=== PATIENT | male | born 1965 | race African-American/Black ===

== ENCOUNTER → 2019-09-16 | Outpatient (CLI) | payer OTHER, SELFPAY | LOC: M LABSMTC 12:48 | PROVIDERS: ATTEND Family Medicine | DX: Z03.818 Encounter for observation for suspected exposure to other biological agents ruled out (principal); Z11.59 Encounter for screening for other viral diseases | CPT/HCPCS: C9803; U0003 ==

== ENCOUNTER → 2020-12-10 | Outpatient (CLI) | payer OTHER ==
--- NOTE | 2020-12-10 14:10 | REP ---
INDICATION: R06.02 SHORTNESS OF BREATH. COMPARISON: None. TECHNIQUE: PA and lateral views FINDINGS: The lungs are clear. The heart is not enlarged. There is no failure. The mediastinum and pleural surfaces are unremarkable. The bony structures are intact. IMPRESSION: Negative chest x-ray. <Electronically signed by Kevin Ty > 12/10/20 [id number]
[2020-12-10 15:26] LABS: BASO # 0.1 10^3/uL (0.0-0.2); BASO % 0.9 % (0.0-1.0); EOS % 0.4 % (0.0-3.0); HEMATOCRIT 40.1 % (42.0-52.0); HEMOGLOBIN 13.4 g/dl (13.5-17.5); LYMPH # 1.9 10^3/uL (1.5-5.0); MEAN CORPUSCULAR HEMOGLOBIN 31.4 pg (27.0-33.0); MEAN CORPUSCULAR HGB CONC 33.4 g/dl (32.0-36.5); MEAN CORPUSCULAR VOLUME 93.9 fl (80.0-96.0); MONO # 0.4 10^3/uL (0.0-0.8); MONO % 7.7 % (2.0-8.0); NEUTROPHILS % 55.8 % (36.0-66.0); PLATELET COUNT, AUTOMATED 226 10^3/uL (150-450); RED BLOOD COUNT 4.27 10^6/uL (4.30-6.10); WHITE BLOOD COUNT 5.3 10^3/uL (4.0-10.0)
[2020-12-10 16:07] LABS: ALBUMIN 3.1 GM/DL (3.2-5.2); ALT/SGPT 106 U/L (12-78); BILIRUBIN,TOTAL 0.4 MG/DL (0.2-1.0); BLOOD UREA NITROGEN 14 MG/DL (7-18); CALCIUM LEVEL 8.3 MG/DL (8.5-10.1); CARBON DIOXIDE LEVEL 28 MEQ/L (21-32); CHLORIDE LEVEL 98 MEQ/L (98-107); CREATININE FOR GFR 0.82 MG/DL (0.70-1.30); GLOMERULAR FILTRATION RATE > 60.0 (>56); GLUCOSE, FASTING 94 MG/DL (70-100); NT-PRO BNP 29 PG/ML (<125); POTASSIUM SERUM 4.7 MEQ/L (3.5-5.1); SODIUM LEVEL 131 MEQ/L (136-145); TOTAL PROTEIN 7.4 GM/DL (6.4-8.2)
== END ==
LOC: M WUC 13:24
PROVIDERS: ATTEND Physician Assistant
DX: R06.02 Shortness of breath (principal)

== ENCOUNTER → 2021-04-01 | Outpatient (CLI) | payer OTHER ==
[~2021-04-01] MED LIST: IBUP80TA
== END ==
LOC: M SOG 09:44
PROVIDERS: ATTEND Orthopaedic Surgery
DX: M47.817 Spondylosis without myelopathy or radiculopathy, lumbosacral region (principal)

== ENCOUNTER → 2021-04-03 | Outpatient (CLI) | payer OTHER | LOC: M PLAIMG 09:46 | PROVIDERS: ATTEND Orthopaedic Surgery | DX: M47.816 Spondylosis without myelopathy or radiculopathy, lumbar region (principal); M48.07 Spinal stenosis, lumbosacral region; M48.061 Spinal stenosis, lumbar region without neurogenic claudication; M51.36 Other intervertebral disc degeneration, lumbar region; E88.2 Lipomatosis, not elsewhere classified ==

== ENCOUNTER → 2021-04-24 | Outpatient (CLI) | payer OTHER ==
[2021-04-24 10:52] LABS: ALBUMIN 3.4 GM/DL (3.2-5.2); ALT/SGPT 120 U/L (12-78); BILIRUBIN,TOTAL 0.3 MG/DL (0.2-1.0); BLOOD UREA NITROGEN 9 MG/DL (7-18); CALCIUM LEVEL 8.7 MG/DL (8.5-10.1); CARBON DIOXIDE LEVEL 27 MEQ/L (21-32); CHLORIDE LEVEL 96 MEQ/L (98-107); CREATININE FOR GFR 0.85 MG/DL (0.70-1.30); GLOMERULAR FILTRATION RATE > 60.0 (>56); GLUCOSE, FASTING 104 MG/DL (70-100); POTASSIUM SERUM 4.9 MEQ/L (3.5-5.1); SODIUM LEVEL 129 MEQ/L (136-145); TOTAL PROTEIN 7.8 GM/DL (6.4-8.2)
[2021-04-24 11:46] LABS: TOTAL 25(OH) VITAMIN D 10.6 NG/ML (30.0-100.0)
[2021-04-28 14:05] LABS: ALBUMIN 3.99 GM/DL (3.29-5.55); ALBUMIN % 51.1 % (55.8-66.1); ALPHA-1-GLOBULIN % 4.2 % (2.9-4.9); ALPHA-1-GLOBULINS 0.33 GM/DL (0.17-0.41); ALPHA-2-GLOBULINS 0.88 GM/DL (0.42-0.99); ALPHA-2-GLOBULINS % 11.3 % (7.1-11.8); BETA-1-GLOBULINS 0.51 GM/DL (0.28-0.60); BETA-1-GLOBULINS % 6.6 % (4.7-7.2); BETA-2-GLOBULINS 0.44 GM/DL (0.19-0.55); BETA-2-GLOBULINS % 5.7 % (3.2-6.5); GAMMA GLOBULIN % 21.1 % (11.1-18.8); GAMMA GLOBULINS 1.65 GM/DL (0.65-1.58)
== END ==
LOC: M LAB 09:33
PROVIDERS: ATTEND Orthopaedic Surgery
DX: M47.816 Spondylosis without myelopathy or radiculopathy, lumbar region (principal); M48.062 Spinal stenosis, lumbar region with neurogenic claudication

== ENCOUNTER → 2021-04-24 | Outpatient (CLI) | payer OTHER ==
[2021-04-24 10:29] LABS: BASO % 0.8 % (0.0-1.0); EOS % 0.4 % (0.0-3.0); HEMATOCRIT 41.8 % (42.0-52.0); HEMOGLOBIN 13.8 g/dl (13.5-17.5); LYMPH # 1.8 10^3/uL (1.5-5.0); LYMPH % 36.9 % (24.0-44.0); MEAN CORPUSCULAR HEMOGLOBIN 30.1 pg (27.0-33.0); MEAN CORPUSCULAR VOLUME 91.1 fl (80.0-96.0); MONO # 0.5 10^3/uL (0.0-0.8); MONO % 9.9 % (2.0-8.0); NEUTROPHILS # 2.6 10^3/uL (1.5-8.5); NEUTROPHILS % 51.8 % (36.0-66.0); PLATELET COUNT, AUTOMATED 215 10^3/uL (150-450); RED BLOOD COUNT 4.59 10^6/uL (4.30-6.10); WHITE BLOOD COUNT 4.9 10^3/uL (4.0-10.0)
[2021-04-24 10:57] LABS: HEMOGLOBIN A1c 5.7 %
[2021-04-24 11:02] LABS: ALBUMIN 3.3 GM/DL (3.2-5.2); ALT/SGPT 119 U/L (12-78); BILIRUBIN,TOTAL 0.3 MG/DL (0.2-1.0); BLOOD UREA NITROGEN 8 MG/DL (7-18); CALCIUM LEVEL 8.5 MG/DL (8.5-10.1); CARBON DIOXIDE LEVEL 28 MEQ/L (21-32); CHLORIDE LEVEL 96 MEQ/L (98-107); CHOLESTEROL LEVEL 136 MG/DL (<200); CHOLESTEROL RISK RATIO 3.578 (<5); CREATININE FOR GFR 0.81 MG/DL (0.70-1.30); FREE T4 1.01 NG/DL (0.76-1.46); GLOMERULAR FILTRATION RATE > 60.0 (>56); GLUCOSE, FASTING 103 MG/DL (70-100); HDL CHOLESTEROL 38 MG/DL (>40); LDL CHOLESTEROL 79 MG/DL (<100); NON-HDL-C 98 MG/DL; POTASSIUM SERUM 4.7 MEQ/L (3.5-5.1); SODIUM LEVEL 130 MEQ/L (136-145); TOTAL PROTEIN 7.7 GM/DL (6.4-8.2); TRIGLYCERIDES LEVEL 93 MG/DL (<150); URIC ACID 7.1 MG/DL (3.5-7.2)
[2021-04-24 12:22] LABS: HIV 1&2 SCREEN CENTAUR NEGATIVE (NEGATIVE)
== END ==
LOC: M LAB 09:35
PROVIDERS: ATTEND Nurse Practitioner Family
DX: Z76.89 Persons encountering health services in other specified circumstances (principal)

== ENCOUNTER → 2021-04-28 | Outpatient (REF) | payer OTHER | LOC: M LAB REF 11:46 | PROVIDERS: ATTEND Nurse Practitioner Family | DX: Z12.11 Encounter for screening for malignant neoplasm of colon (principal) ==

== ENCOUNTER → 2021-05-05 | Outpatient (CLI) | payer OTHER ==
[~2021-05-05] MED LIST changes: -IBUP80TA; +PROHANCE 279.3MG/ML 15ML VIAL ONE; +PROHANCE 279.3MG/ML 5ML VIAL ONE
--- NOTE | 2021-05-05 15:06 | REPVR ---
PROCEDURE INFORMATION: Exam: MR Lumbar Spine With Contrast Exam date and time: 05/05/2021 2:29 PM Age: 55 years old Clinical indication: Low back pain; Additional info: Spinal stenosis lumbar w/ neurogenic cladication TECHNIQUE: Imaging protocol: Multiplanar magnetic resonance images of the lumbar spine with intravenous contrast. Contrast material: PROHANCE; Contrast volume: 25 ml; Contrast route: INTRAVENOUS (IV); COMPARISON: MRI-Spine, L.S. without con 04/03/2021 9:59 AM FINDINGS: Vertebrae: There is no acute fracture or listhesis. There is no abnormal marrow enhancement. 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 Spinal canal/neural foramina: Please refer to the preceding noncontrast enhanced examination for complete level by level evaluation. Soft tissues: Unremarkable. IMPRESSION: No abnormal marrow enhancement. Pattern on preceding examination likely reflects changes of age-related marrow conversion. Electronically signed by: Ines Ellis On 05/05/2021 15:05:24 PM
== END ==
LOC: M PLAIMG 13:35
PROVIDERS: ATTEND Orthopaedic Surgery
DX: M48.062 Spinal stenosis, lumbar region with neurogenic claudication (principal)

== ENCOUNTER → 2021-05-06 | Outpatient (CLI) | payer OTHER ==
--- NOTE | 2021-05-06 10:24 | REP ---
INDICATION: LOWER LT LEG ADEMA. COMPARISON: None. TECHNIQUE: Multiple ultrasonographic images of the deep venous structures of the left lower extremity were obtained from the inguinal ligament to the ankle. Venous compression techniques, color doppler imaging, and augmentation techniques were also obtained where appropriate. As per the ACR guidelines the anterior tibial vein can not be effectively evaluated. Only compression techniques in the calf on the peroneal and posterior tibial veins was attempted/performed. FINDINGS: There is no abnormal echogenic material seen within any of the visualized deep venous structures that would suggest acute thrombosis. Coaptation is unremarkable throughout. Doppler interrogation shows an expected response to respiratory variability and augmentation in the thigh. Compression techniques in the calf were unobtainable. The color flow images show what appears to be a normal vascular pattern throughout the thigh. IMPRESSION: There is no ultrasonographic evidence of deep venous thrombosis involving any of the visualized deep venous structures of the left lower extremity as described above. Due to technical parameters calf vein DVT can not be ruled out. <Electronically signed by Frank Lovelace > 05/06/21 [id number]
== END ==
LOC: M RAD 09:40
PROVIDERS: ATTEND Nurse Practitioner Family
DX: R60.0 Localized edema (principal)

== ENCOUNTER 2021-05-28 09:54 | Emergency (ER) | payer OTHER ==
[~2021-05-28] VITALS: Ht 180.3 cm; Wt 130.0 kg
[2021-05-28] MEDS ORDERED: IBUP80TA (10:05)
[2021-05-28 12:29] LABS: BASO % 0.8 % (0.0-1.0); EOS % 0.8 % (0.0-3.0); HEMATOCRIT 39.1 % (42.0-52.0); HEMOGLOBIN 13.1 g/dl (13.5-17.5); LYMPH # 1.8 10^3/uL (1.5-5.0); LYMPH % 33.2 % (24.0-44.0); MEAN CORPUSCULAR HEMOGLOBIN 30.4 pg (27.0-33.0); MEAN CORPUSCULAR HGB CONC 33.5 g/dl (32.0-36.5); MEAN CORPUSCULAR VOLUME 90.7 fl (80.0-96.0); MONO # 0.7 10^3/uL (0.0-0.8); MONO % 12.3 % (2.0-8.0); NEUTROPHILS # 2.8 10^3/uL (1.5-8.5); NEUTROPHILS % 52.7 % (36.0-66.0); PLATELET COUNT, AUTOMATED 232 10^3/uL (150-450); RED BLOOD COUNT 4.31 10^6/uL (4.30-6.10); WHITE BLOOD COUNT 5.3 10^3/uL (4.0-10.0)
[2021-05-28 12:48] LABS: ERYTHROCYTE SEDIMENTATION RATE 32 mm/hr (0-20)
[2021-05-28 13:27] LABS: CK-MB VALUE MASS 1.6 NG/ML (<3.6); MB/CK RELATIVE INDEX 1.76 (< OR =4)
[2021-05-28 13:35] LABS: ALBUMIN 3.1 GM/DL (3.2-5.2); ALT/SGPT 137 U/L (12-78); BILIRUBIN,TOTAL 0.1 MG/DL (0.2-1.0); BLOOD UREA NITROGEN 7 MG/DL (7-18); C REACTIVE PROTEIN QUANTITATIV 1.11 MG/DL (0.00-0.30); CALCIUM LEVEL 8.4 MG/DL (8.5-10.1); CARBON DIOXIDE LEVEL 27 MEQ/L (21-32); CHLORIDE LEVEL 95 MEQ/L (98-107); CREATININE FOR GFR 0.79 MG/DL (0.70-1.30); GLOMERULAR FILTRATION RATE > 60.0 (>56); GLUCOSE, FASTING 101 MG/DL (70-100); POTASSIUM SERUM 4.5 MEQ/L (3.5-5.1); SODIUM LEVEL 129 MEQ/L (136-145); TOTAL PROTEIN 7.2 GM/DL (6.4-8.2); URIC ACID 5.5 MG/DL (3.5-7.2)
[2021-05-28] MEDS ORDERED: NS 1,000 ML IV ONE (14:05)
[2021-05-28 14:20] LABS: NT-PRO BNP 36 PG/ML (<125)
[2021-05-28 15:02] LABS: CK-MB VALUE MASS 1.6 NG/ML (<3.6); MB/CK RELATIVE INDEX 1.68 (< OR =4)
[2021-05-28 15:53] VITALS: BP 180/110
== END 2021-05-28 15:55 | disposition home or self-care (01) ==
LOC: M ED 09:54
DX: I10 Essential (primary) hypertension (principal); R22.42 Localized swelling, mass and lump, left lower limb; E87.1 Hypo-osmolality and hyponatremia; R74.01 Elevation of levels of liver transaminase levels; E87.8 Other disorders of electrolyte and fluid balance, not elsewhere classified

== ENCOUNTER → 2021-09-02 | Outpatient (CLI) | payer OTHER ==
[~2021-09-02] MED LIST changes: +IBUP80TA; -PROHANCE 279.3MG/ML 15ML VIAL ONE; -PROHANCE 279.3MG/ML 5ML VIAL ONE
== END ==
LOC: M SLEEP HO 11:32
PROVIDERS: ATTEND Physician Assistant
DX: R40.0 Somnolence (principal)

== ENCOUNTER → 2022-03-11 | Outpatient (CLI) | payer OTHER | LOC: M PAIN 13:00 | PROVIDERS: ATTEND Anesthesiology | DX: M79.10 Myalgia, unspecified site (principal); G89.29 Other chronic pain; G47.30 Sleep apnea, unspecified; Z87.891 Personal history of nicotine dependence; Z79.899 Other long term (current) drug therapy ==

== ENCOUNTER → 2022-03-18 | Outpatient (REF) | LOC: M PLAIMG 11:15 | PROVIDERS: ATTEND Internal Medicine | DX: Z11.52 Encounter for screening for COVID-19 (principal) ==

== ENCOUNTER → 2022-03-19 | Outpatient (REF) | payer OTHER ==
[2022-03-19 20:21] LABS: ALBUMIN 3.5 G/DL (3.2-5.2); ALT/SGPT 155 U/L (7.0-40); BILIRUBIN,TOTAL 0.5 MG/DL (0.3-1.2); BLOOD UREA NITROGEN 17 MG/DL (9-23); CALCIUM LEVEL 9.6 MG/DL (8.5-10.1); CARBON DIOXIDE LEVEL 26 MMOL/L (20-31); CHLORIDE LEVEL 88 MMOL/L (98-107); CREATININE FOR GFR 0.69 MG/DL (0.70-1.30); GLOMERULAR FILTRATION RATE > 60.0 (>56); GLUCOSE, FASTING 93 MG/DL (60-100); POTASSIUM SERUM 4.8 MMOL/L (3.5-5.1); SODIUM LEVEL 123 MMOL/L (136-145); TOTAL PROTEIN 7.5 G/DL (5.7-8.2)
== END ==
LOC: M LAB REF 16:31
PROVIDERS: ATTEND Nurse Practitioner Family
DX: I10 Essential (primary) hypertension (principal)

== ENCOUNTER → 2022-05-07 | Outpatient (CLI) | payer OTHER | LOC: M LABSMTC 09:26 | PROVIDERS: ATTEND Anesthesiology | DX: Z01.812 Encounter for preprocedural laboratory examination (principal); Z20.822 Contact with and (suspected) exposure to COVID-19 ==

== ENCOUNTER → 2022-05-12 | Outpatient (CLI) | payer OTHER ==
[~2022-05-12] MED LIST changes: +BUPIVACAINE HCL 0.25% 10ML VIAL As Ordered ONE; +BUPIVACAINE HCL 0.25% 30ML VIAL As Ordered ONE; +NORCO, ANEXSIA 5/325MG TABLET (HYDROcodone/ACETAMINOPHEN) As Ordered ONE; +TRIAMCINOLONE ACETONIDE SUSP 40MG/ML 1ML VIAL As Ordered ONE; +diazePAM 5MG TABLET As Ordered ONE
== END ==
LOC: M PAIN 10:30
PROVIDERS: ATTEND Anesthesiology
DX: M79.10 Myalgia, unspecified site (principal); G89.29 Other chronic pain; G47.30 Sleep apnea, unspecified; Z87.891 Personal history of nicotine dependence; Z79.899 Other long term (current) drug therapy

== ENCOUNTER → 2022-05-28 | Outpatient (CLI) | payer OTHER ==
[~2022-05-28] MED LIST changes: -BUPIVACAINE HCL 0.25% 10ML VIAL As Ordered ONE; -BUPIVACAINE HCL 0.25% 30ML VIAL As Ordered ONE; -NORCO, ANEXSIA 5/325MG TABLET (HYDROcodone/ACETAMINOPHEN) As Ordered ONE; -TRIAMCINOLONE ACETONIDE SUSP 40MG/ML 1ML VIAL As Ordered ONE; -diazePAM 5MG TABLET As Ordered ONE
[2022-05-28 11:36] LABS: BASO % 0.4 % (0.0-1.0); EOS # 0.1 10^3/uL (0.0-0.5); EOS % 0.7 % (0.0-3.0); HEMATOCRIT 36.8 % (42.0-52.0); HEMOGLOBIN 12.8 g/dl (13.5-17.5); LYMPH # 1.7 10^3/uL (1.5-5.0); LYMPH % 22.9 % (24.0-44.0); MEAN CORPUSCULAR HEMOGLOBIN 32.3 pg (27.0-33.0); MEAN CORPUSCULAR HGB CONC 34.8 g/dl (32.0-36.5); MEAN CORPUSCULAR VOLUME 92.9 fl (80.0-96.0); MONO # 0.6 10^3/uL (0.0-0.8); MONO % 8.3 % (2.0-8.0); NEUTROPHILS # 4.9 10^3/uL (1.5-8.5); NEUTROPHILS % 67.4 % (36.0-66.0); PLATELET COUNT, AUTOMATED 189 10^3/uL (150-450); RED BLOOD COUNT 3.96 10^6/uL (4.30-6.10); WHITE BLOOD COUNT 7.3 10^3/uL (4.0-10.0)
[2022-05-28 12:07] LABS: ALBUMIN 3.1 G/DL (3.2-5.2); ALKALINE PHOSPHATASE 152 U/L (46-116); ALT/SGPT 220 U/L (7.0-40); AST/SGOT 224 U/L (<34); BILIRUBIN,TOTAL 0.4 MG/DL (0.3-1.2); BLOOD UREA NITROGEN 10 MG/DL (9-23); CALCIUM LEVEL 8.4 MG/DL (8.5-10.1); CARBON DIOXIDE LEVEL 24 MMOL/L (20-31); CHLORIDE LEVEL 91 MMOL/L (98-107); CHOLESTEROL LEVEL 114 MG/DL (<200); CHOLESTEROL RISK RATIO 4.97 (<5); CREATININE FOR GFR 0.65 MG/DL (0.70-1.30); FREE THYROXINE INDEX 3.5 % (1.4-3.8); GLOMERULAR FILTRATION RATE > 60.0 (>56); GLUCOSE, FASTING 102 MG/DL (60-100); HDL CHOLESTEROL 22.9 MG/DL (>40); LDL CHOLESTEROL 78.3 MG/DL (<100); NON-HDL-C 91 MG/DL; POTASSIUM SERUM 4.2 MMOL/L (3.5-5.1); SODIUM LEVEL 122 MMOL/L (136-145); T UPTAKE 38.1 % (22.5-37.0); THYROID STIMULATING HORMONE 2.451 uIU/ML (0.55-4.78); THYROXINE (T4) 9.3 UG/DL (4.5-10.9); TOTAL 25(OH) VITAMIN D 9.7 NG/ML (20.0-100.0); TOTAL PROTEIN 7.5 G/DL (5.7-8.2); TRIGLYCERIDES LEVEL 64 MG/DL (<150)
[2022-05-28 12:39] LABS: HEMOGLOBIN A1c 5.6 % (4.0-6.0)
== END ==
LOC: M EKG 10:47
PROVIDERS: ATTEND Nurse Practitioner Psychiatric/Mental Health
DX: F33.9 Major depressive disorder, recurrent, unspecified (principal)

== ENCOUNTER → 2022-06-02 | Outpatient (CLI) | payer OTHER | LOC: M PAIN 11:30 | PROVIDERS: ATTEND Nurse Practitioner Family | DX: M51.16 Intervertebral disc disorders with radiculopathy, lumbar region (principal); G89.29 Other chronic pain; G47.30 Sleep apnea, unspecified; Z86.59 Personal history of other mental and behavioral disorders; Z87.891 Personal history of nicotine dependence; Z79.899 Other long term (current) drug therapy ==

== ENCOUNTER → 2022-06-22 | Outpatient (REF) | payer OTHER ==
[2022-06-22 13:03] LABS: HEMOGLOBIN 13.3 g/dl (13.5-17.5); MEAN CORPUSCULAR VOLUME 91.3 fl (80.0-96.0); PLATELET COUNT, AUTOMATED 196 10^3/uL (150-450); RED BLOOD COUNT 4.16 10^6/uL (4.30-6.10); WHITE BLOOD COUNT 7.2 10^3/uL (4.0-10.0)
[2022-06-22 13:30] LABS: HEPATITIS B SURFACE ANTIBODY NEGATIVE (POSITIVE)
[2022-06-22 13:40] LABS: HEPATITIS B SURFACE ANTIGEN NEGATIVE (NEGATIVE)
[2022-06-22 14:02] LABS: HEPATITIS C VIRUS ABY INDEX 0.2 INDEX (<0.8)
[2022-06-22 14:05] LABS: ALBUMIN 3.3 G/DL (3.2-5.2); ALKALINE PHOSPHATASE 97 U/L (46-116); ALT/SGPT 121 U/L (7.0-40); AST/SGOT 145 U/L (<34); BILIRUBIN,DIRECT 0.5 MG/DL (<0.4); BILIRUBIN,TOTAL 0.9 MG/DL (0.3-1.2); BLOOD UREA NITROGEN 9 MG/DL (9-23); CALCIUM LEVEL 8.7 MG/DL (8.5-10.1); CARBON DIOXIDE LEVEL 25 MMOL/L (20-31); CHLORIDE LEVEL 84 MMOL/L (98-107); CREATININE FOR GFR 0.64 MG/DL (0.70-1.30); GLOMERULAR FILTRATION RATE > 60.0 (>56); GLUCOSE, FASTING 101 MG/DL (60-100); POTASSIUM SERUM 4.6 MMOL/L (3.5-5.1); SODIUM LEVEL 118 MMOL/L (136-145); TOTAL PROTEIN 7.7 G/DL (5.7-8.2)
== END ==
LOC: M LAB REF 12:09
PROVIDERS: ATTEND Nurse Practitioner Family
DX: K76.0 Fatty (change of) liver, not elsewhere classified (principal)

== ENCOUNTER → 2022-06-25 | Outpatient (REF) | payer OTHER ==
[2022-06-25 17:13] LABS: ALBUMIN 3.2 G/DL (3.2-5.2); ALKALINE PHOSPHATASE 134 U/L (46-116); ALT/SGPT 193 U/L (7.0-40); AST/SGOT 242 U/L (<34); BILIRUBIN,TOTAL 0.4 MG/DL (0.3-1.2); BLOOD UREA NITROGEN 8 MG/DL (9-23); CALCIUM LEVEL 8.7 MG/DL (8.5-10.1); CARBON DIOXIDE LEVEL 26 MMOL/L (20-31); CHLORIDE LEVEL 91 MMOL/L (98-107); CREATININE FOR GFR 0.66 MG/DL (0.70-1.30); GLOMERULAR FILTRATION RATE > 60.0 (>56); GLUCOSE, FASTING 94 MG/DL (60-100); POTASSIUM SERUM 4.9 MMOL/L (3.5-5.1); SODIUM LEVEL 123 MMOL/L (136-145); TOTAL PROTEIN 7.6 G/DL (5.7-8.2)
== END ==
LOC: M LAB REF 16:17
PROVIDERS: ATTEND Nurse Practitioner Family
DX: E87.1 Hypo-osmolality and hyponatremia (principal)

== ENCOUNTER → 2022-07-13 | Outpatient (CLI) | payer OTHER | LOC: M PAIN 11:00 | PROVIDERS: ATTEND Nurse Practitioner Family | DX: M51.16 Intervertebral disc disorders with radiculopathy, lumbar region (principal); G89.29 Other chronic pain; G47.30 Sleep apnea, unspecified; Z86.59 Personal history of other mental and behavioral disorders; Z87.891 Personal history of nicotine dependence; Z79.899 Other long term (current) drug therapy ==

== ENCOUNTER → 2022-07-13 | Outpatient (REF) | payer OTHER ==
[2022-07-13 15:12] LABS: ALBUMIN 3.3 G/DL (3.2-5.2); ALKALINE PHOSPHATASE 101 U/L (46-116); ALT/SGPT 121 U/L (7.0-40); AST/SGOT 121 U/L (<34); BILIRUBIN,TOTAL 0.7 MG/DL (0.3-1.2); BLOOD UREA NITROGEN 10 MG/DL (9-23); CALCIUM LEVEL 9.1 MG/DL (8.5-10.1); CARBON DIOXIDE LEVEL 29 MMOL/L (20-31); CHLORIDE LEVEL 93 MMOL/L (98-107); CREATININE FOR GFR 0.74 MG/DL (0.70-1.30); GLOMERULAR FILTRATION RATE > 60.0 (>56); GLUCOSE, FASTING 116 MG/DL (60-100); POTASSIUM SERUM 4.5 MMOL/L (3.5-5.1); SODIUM LEVEL 129 MMOL/L (136-145); TOTAL PROTEIN 7.7 G/DL (5.7-8.2)
== END ==
LOC: M LAB REF 11:53
PROVIDERS: ATTEND Nurse Practitioner Family
DX: K76.0 Fatty (change of) liver, not elsewhere classified (principal)

== ENCOUNTER → 2022-07-28 | Outpatient (CLI) | payer OTHER | LOC: M LABSMTC 10:29 | PROVIDERS: ATTEND Anesthesiology | DX: Z20.822 Contact with and (suspected) exposure to COVID-19 (principal) ==

== ENCOUNTER → 2022-07-29 | Outpatient (CLI) | payer OTHER | LOC: M PAIN 09:30 | PROVIDERS: ATTEND Anesthesiology | DX: M51.16 Intervertebral disc disorders with radiculopathy, lumbar region (principal); G89.29 Other chronic pain; G47.30 Sleep apnea, unspecified; Z86.59 Personal history of other mental and behavioral disorders; Z87.891 Personal history of nicotine dependence; Z79.899 Other long term (current) drug therapy ==

== ENCOUNTER → 2022-08-19 | Outpatient (CLI) | payer OTHER | LOC: M PAIN 11:30 | PROVIDERS: ATTEND Anesthesiology | DX: M48.062 Spinal stenosis, lumbar region with neurogenic claudication (principal); G89.29 Other chronic pain; R93.7 Abnormal findings on diagnostic imaging of other parts of musculoskeletal system; G47.30 Sleep apnea, unspecified; Z86.59 Personal history of other mental and behavioral disorders; Z87.891 Personal history of nicotine dependence; Z79.899 Other long term (current) drug therapy ==

== ENCOUNTER → 2022-09-02 | Outpatient (CLI) | payer OTHER | LOC: M PAIN 13:45 | PROVIDERS: ATTEND Anesthesiology | DX: M51.16 Intervertebral disc disorders with radiculopathy, lumbar region (principal); G89.29 Other chronic pain; G47.30 Sleep apnea, unspecified; Z86.59 Personal history of other mental and behavioral disorders; Z87.891 Personal history of nicotine dependence; Z79.899 Other long term (current) drug therapy ==

== ENCOUNTER → 2022-10-09 | Outpatient (CLI) | payer OTHER ==
[~2022-10-09] MED LIST changes: +ISOVUE-M 300 61% 15ML VIAL As Ordered ONE; +LIDOCAINE 1% SDV 30ML VIAL As Ordered ONE; +NORCO, ANEXSIA 5/325MG TABLET (HYDROcodone/ACETAMINOPHEN) As Ordered ONE; +diazePAM 5MG TABLET As Ordered ONE; +methylPREDNISolone SUSP 40MG/ML 1ML VIAL (DEPO MEDROL) As Ordered ONE
== END ==
LOC: M PAIN 11:00
PROVIDERS: ATTEND Anesthesiology
DX: M51.16 Intervertebral disc disorders with radiculopathy, lumbar region (principal); G89.29 Other chronic pain; G47.30 Sleep apnea, unspecified; Z86.59 Personal history of other mental and behavioral disorders; Z87.891 Personal history of nicotine dependence; E66.01 Morbid (severe) obesity due to excess calories; Z68.41 Body mass index [BMI] 40.0-44.9, adult; Z79.899 Other long term (current) drug therapy
CPT/HCPCS: 62323; J1030; Q9967

== ENCOUNTER → 2022-10-21 | Outpatient (REF) | payer OTHER ==
[~2022-10-21] MED LIST changes: -ISOVUE-M 300 61% 15ML VIAL As Ordered ONE; -LIDOCAINE 1% SDV 30ML VIAL As Ordered ONE; -NORCO, ANEXSIA 5/325MG TABLET (HYDROcodone/ACETAMINOPHEN) As Ordered ONE; -diazePAM 5MG TABLET As Ordered ONE; -methylPREDNISolone SUSP 40MG/ML 1ML VIAL (DEPO MEDROL) As Ordered ONE
[2022-10-21 14:31] LABS: ALBUMIN 2.9 G/DL (3.2-5.2); ALKALINE PHOSPHATASE 149 U/L (46-116); ALT/SGPT 107 U/L (7.0-40); AST/SGOT 206 U/L (<34); BILIRUBIN,TOTAL 0.6 MG/DL (0.3-1.2); BLOOD UREA NITROGEN 10 MG/DL (9-23); CALCIUM LEVEL 8.3 MG/DL (8.5-10.1); CARBON DIOXIDE LEVEL 24 MMOL/L (20-31); CHLORIDE LEVEL 94 MMOL/L (98-107); GLOMERULAR FILTRATION RATE > 60.0 (>56); GLUCOSE, FASTING 99 MG/DL (60-100); POTASSIUM SERUM 4.5 MMOL/L (3.5-5.1); SODIUM LEVEL 126 MMOL/L (136-145); TOTAL PROTEIN 7.5 G/DL (5.7-8.2)
== END ==
LOC: M LAB REF 12:41
PROVIDERS: ATTEND Nurse Practitioner Family
DX: I10 Essential (primary) hypertension (principal)

== ENCOUNTER 2022-10-26 10:42 | Outpatient (RCR) | payer OTHER | END 2022-10-30 | LOC: M PT 10:42 | PROVIDERS: ATTEND Surgery Vascular Surgery | DX: I89.0 Lymphedema, not elsewhere classified (principal) ==

== ENCOUNTER → 2022-11-05 | Outpatient (REF) | payer OTHER ==
[2022-11-05 16:53] LABS: OSMOLALITY URINE 708 MOSM/KG (50-1400)
[2022-11-05 17:17] LABS: SODIUM,RANDOM URINE 172 MMOL/L
[2022-11-05 17:40] LABS: BLOOD UREA NITROGEN 11 MG/DL (9-23); CALCIUM LEVEL 9.8 MG/DL (8.5-10.1); CARBON DIOXIDE LEVEL 26 MMOL/L (20-31); CHLORIDE LEVEL 99 MMOL/L (98-107); CREATININE FOR GFR 0.81 MG/DL (0.70-1.30); GLOMERULAR FILTRATION RATE > 60.0 (>56); GLUCOSE, FASTING 108 MG/DL (60-100); POTASSIUM SERUM 4.6 MMOL/L (3.5-5.1); SODIUM LEVEL 131 MMOL/L (136-145)
[2022-11-05 17:45] LABS: OSMOLALITY SERUM 279 MOSM/KG (275-295)
== END ==
LOC: M LAB REF 16:21
PROVIDERS: ATTEND Nurse Practitioner Family
DX: E87.1 Hypo-osmolality and hyponatremia (principal)

== ENCOUNTER → 2022-11-12 | Outpatient (CLI) | payer OTHER ==
[2022-11-12 14:10] LABS: ALBUMIN 2.9 G/DL (3.2-5.2); BLOOD UREA NITROGEN 12 MG/DL (9-23); CALCIUM LEVEL 8.8 MG/DL (8.5-10.1); CARBON DIOXIDE LEVEL 27 MMOL/L (20-31); CHLORIDE LEVEL 98 MMOL/L (98-107); CREATININE FOR GFR 0.76 MG/DL (0.70-1.30); GLOMERULAR FILTRATION RATE > 60.0 (>56); GLUCOSE, FASTING 106 MG/DL (60-100); PHOSPHORUS LEVEL 3.2 MG/DL (2.5-4.9); POTASSIUM SERUM 4.4 MMOL/L (3.5-5.1); SODIUM LEVEL 131 MMOL/L (136-145)
== END ==
LOC: M LAB 12:30
PROVIDERS: ATTEND Internal Medicine Cardiovascular Disease
DX: I10 Essential (primary) hypertension (principal)

== ENCOUNTER 2022-11-23 12:39 | Outpatient (RCR) | payer OTHER | END 2022-11-30 | LOC: M PT 12:39 | PROVIDERS: ATTEND Surgery Vascular Surgery | DX: I89.0 Lymphedema, not elsewhere classified (principal) ==

== ENCOUNTER → 2023-01-19 | Outpatient (CLI) | payer OTHER ==
[~2023-01-19] MED LIST changes: +ISOVUE-M 300 61% 15ML VIAL As Ordered ONE; +LIDOCAINE 1% SDV 30ML VIAL As Ordered ONE; +NORCO, ANEXSIA 5/325MG TABLET (HYDROcodone/ACETAMINOPHEN) As Ordered ONE; +dexAMETHasone 10MG/1ML VIAL PRES.FREE As Ordered ONE; +diazePAM 5MG TABLET As Ordered ONE
== END ==
LOC: M PAIN 13:00
PROVIDERS: ATTEND Anesthesiology
DX: M51.16 Intervertebral disc disorders with radiculopathy, lumbar region (principal); G89.29 Other chronic pain; G47.30 Sleep apnea, unspecified; Z86.59 Personal history of other mental and behavioral disorders; Z87.891 Personal history of nicotine dependence; E66.01 Morbid (severe) obesity due to excess calories; Z68.41 Body mass index [BMI] 40.0-44.9, adult; Z79.899 Other long term (current) drug therapy
CPT/HCPCS: 64483; J0665; J1100; Q9967

== ENCOUNTER → 2023-03-03 | Outpatient (CLI) | payer OTHER ==
[~2023-03-03] MED LIST changes: -ISOVUE-M 300 61% 15ML VIAL As Ordered ONE; -LIDOCAINE 1% SDV 30ML VIAL As Ordered ONE; -NORCO, ANEXSIA 5/325MG TABLET (HYDROcodone/ACETAMINOPHEN) As Ordered ONE; -dexAMETHasone 10MG/1ML VIAL PRES.FREE As Ordered ONE; -diazePAM 5MG TABLET As Ordered ONE
== END ==
LOC: M RAD 10:05
PROVIDERS: ATTEND Podiatrist Foot & Ankle Surgery
DX: I73.89 Other specified peripheral vascular diseases (principal); M79.2 Neuralgia and neuritis, unspecified; M72.2 Plantar fascial fibromatosis; B35.1 Tinea unguium

== ENCOUNTER → 2023-04-08 | Outpatient (CLI) | payer OTHER | LOC: M PAIN 10:30 | PROVIDERS: ATTEND Nurse Practitioner Family | DX: M51.16 Intervertebral disc disorders with radiculopathy, lumbar region (principal); G89.29 Other chronic pain; Z87.891 Personal history of nicotine dependence; E66.01 Morbid (severe) obesity due to excess calories; Z68.41 Body mass index [BMI] 40.0-44.9, adult; Z79.899 Other long term (current) drug therapy ==

== ENCOUNTER → 2023-06-02 | Outpatient (CLI) | payer OTHER | LOC: M PAIN 10:00 | PROVIDERS: ATTEND Anesthesiology | DX: M47.816 Spondylosis without myelopathy or radiculopathy, lumbar region (principal); M48.062 Spinal stenosis, lumbar region with neurogenic claudication; G89.29 Other chronic pain; G47.30 Sleep apnea, unspecified; I73.9 Peripheral vascular disease, unspecified; M54.50 Low back pain, unspecified; F32.A Depression, unspecified; Z87.891 Personal history of nicotine dependence; Z79.1 Long term (current) use of non-steroidal anti-inflammatories (NSAID); Z79.899 Other long term (current) drug therapy ==

== ENCOUNTER 2023-08-15 07:19 | Inpatient (IN) | payer MEDICAID, MEDICARE, OTHER ==
[2023-08-15] VITALS (8 sets, daily range): BP systolic 153–199; BP diastolic 72–111; TEMP 99.9–100.4; O2SAT 92–96
[~2023-08-15] VITALS: Ht 180.3 cm; Wt 131.5 kg
[2023-08-15] MEDS ORDERED: MELO15TA28 PO (08:12)
[2023-08-15] MEDS ORDERED: GABA-1171 PO (08:12)
[2023-08-15] MEDS: NITROGLYCERIN 0.4MG SUBL TABLET SL STA (08:21)
[2023-08-15 08:25] LABS: BASO # 0.1 10^3/uL (0.0-0.2); BASO % 1.2 % (0.0-1.0); EOS % 0.3 % (0.0-3.0); HEMATOCRIT 33.6 % (42.0-52.0); HEMOGLOBIN 11.6 g/dl (13.5-17.5); LYMPH # 1.3 10^3/uL (1.5-5.0); LYMPH % 17.1 % (24.0-44.0); MEAN CORPUSCULAR HGB CONC 34.5 g/dl (32.0-36.5); MEAN CORPUSCULAR VOLUME 98.5 fl (80.0-96.0); MONO # 0.7 10^3/uL (0.0-0.8); MONO % 9.5 % (2.0-8.0); NEUTROPHILS # 5.3 10^3/uL (1.5-8.5); NEUTROPHILS % 71.6 % (36.0-66.0); PLATELET COUNT, AUTOMATED 84 10^3/uL (150-450); RED BLOOD COUNT 3.41 10^6/uL (4.30-6.10); WHITE BLOOD COUNT 7.4 10^3/uL (4.0-10.0)
[2023-08-15 08:29] LABS: INR 1.26; PARTIAL THROMBOPLASTIN TIME 36.5 SECONDS (24.8-34.2); PROTHROMBIN TIME 15.4 SECONDS (12.5-14.5)
[2023-08-15 08:37] LABS: ALBUMIN 2.3 G/DL (3.2-5.2); ALKALINE PHOSPHATASE 195 U/L (46-116); ALT/SGPT 56 U/L (7.0-40); AST/SGOT 232 U/L (<34); BILIRUBIN,DIRECT 2.7 MG/DL (<0.4); BILIRUBIN,TOTAL 3.7 MG/DL (0.3-1.2); BLOOD UREA NITROGEN 11 MG/DL (9-23); CALCIUM LEVEL 8.3 MG/DL (8.5-10.1); CARBON DIOXIDE LEVEL 26 MMOL/L (20-31); CHLORIDE LEVEL 101 MMOL/L (98-107); CK-MB VALUE MASS 10.9 NG/ML (<3.6); CREATININE FOR GFR 0.81 MG/DL (0.70-1.30); GLOMERULAR FILTRATION RATE > 60.0 (>56); GLUCOSE, FASTING 141 MG/DL (60-100); MAGNESIUM LEVEL 1.6 MG/DL (1.8-2.4); POTASSIUM SERUM 3.9 MMOL/L (3.5-5.1); SODIUM LEVEL 134 MMOL/L (136-145); TOTAL PROTEIN 7.9 G/DL (5.7-8.2)
[2023-08-15 08:40] LABS: LIPASE 35 U/L (12-53); THYROID STIMULATING HORMONE 2.449 uIU/ML (0.55-4.78)
[2023-08-15 08:41] LABS: FREE T4 0.87 NG/DL (0.89-1.76)
[2023-08-15] MEDS ORDERED: ISOVUE-370 76% 100ML VIAL As Ordered ONE (08:41)
[2023-08-15 08:44] LABS: CPK CREATINE PHOSPHOKINASE 465 U/L (46-171); MB/CK RELATIVE INDEX 2.34 (< OR =4)
[2023-08-15] MEDS: MORPHINE 4 MG/ML 1ML VIAL IV ONE ×2 (08:44→12:37)
[2023-08-15 09:31] LABS: CK-MB VALUE MASS 8.4 NG/ML (<3.6)
[2023-08-15 09:33] LABS: CPK CREATINE PHOSPHOKINASE 417 U/L (46-171); MB/CK RELATIVE INDEX 2.01 (< OR =4)
[2023-08-15] MEDS: MAG SULF 1GM/100ML (MAG RUN) 1 GM in IV 1 EA IV ONE (09:35)
[2023-08-15] MEDS ORDERED: D3 S1CAP3 PO (10:52)
[2023-08-15] MEDS ORDERED: AMIT50TA PO (10:52)
[2023-08-15] MEDS ORDERED: TORS20TA2 PO (10:52)
[2023-08-15] MEDS ORDERED: DILT240C82 PO (10:52)
[2023-08-15] MEDS ORDERED: AMMO12CR7 TOP (10:52)
[2023-08-15] MEDS ORDERED: CLON0.5T2 PO (10:52)
[2023-08-15] MEDS ORDERED: AMIL5TAB4 PO (10:52)
[2023-08-15] MEDS ORDERED: HOME MED LIST COMPLETE! XX SCH (10:55)
[2023-08-15] MEDS: PIPERACILLIN/TAZOBACTAM SOD 4.5 GM in D5W MINI-BAG PLUS 50 ML IV ONE (13:49)
[2023-08-15] MEDS: NS 1,000 ML IV SCH (13:49)
[2023-08-15] MEDS: ACETAMINOPHEN TAB 650MG DOSE (2X325MG) PO ONE (13:50)
[2023-08-15] MEDS ORDERED: MOM 30ML SUSPENSION UDC PO PRN (14:05)
[2023-08-15] MEDS ORDERED: ACETAMINOPHEN 500 MG TAB PO PRN (14:05)
[2023-08-15] MEDS ORDERED: aMILoride 5 MG TAB PO SCH (14:05)
[2023-08-15] MEDS: LORazepam 2 MG TAB PO PRN (15:15)
[2023-08-15] MEDS: THIAMINE 100 MG TAB PO ONE (15:15)
[2023-08-15 15:18] LABS: PROCALCITONIN 0.23 ng/ml
[2023-08-15 15:47] LABS: HEPATITIS B CORE ANTIBODY IGM NEGATIVE (NEGATIVE); HEPATITIS C VIRUS ABY INDEX 0.03 INDEX (<0.8)
[2023-08-15] MEDS ORDERED: PROHANCE 279.3MG/ML 5ML VIAL As Ordered ONE (16:20)
[2023-08-15] MEDS ORDERED: PROHANCE 279.3MG/ML 15ML VIAL As Ordered ONE (16:20)
[2023-08-15] MEDS: KETOROLAC 30 MG/ML 1ML VIAL IV SCH (17:42)
[2023-08-15] MEDS: MAG SULF 1GM/100ML (MAG RUN) 1 GM in IV 1 EA IV SCH (17:42)
[2023-08-15] MEDS: OXAZEPAM 15MG CAP PO SCH (17:43)
[2023-08-15] MEDS: dilTIAZem 120MG **CD** CAPSULE PO SCH (17:43)
[2023-08-15] MEDS: FOLIC ACID 1MG TAB PO SCH (17:44)
[2023-08-15] MEDS: MULTIVITAMINS/MINERALS THERAP 1 TAB PO SCH (17:44)
[2023-08-15] MEDS: aMILoride 5 MG TAB PO ONE (17:44)
[2023-08-15] MEDS: KETOROLAC 30 MG/ML 1ML VIAL IV PRN (17:46)
[2023-08-15] MEDS: PIPERACILLIN/TAZOBACTAM SOD 3.375 GM in D5W MINI-BAG PLUS 50 ML IV SCH (20:15)
[2023-08-15] MEDS: clonazePAM 0.5 MG TAB PO SCH (21:02)
[2023-08-15] MEDS: THIAMINE 100 MG TAB PO SCH (21:02)
[2023-08-15] MEDS: GABAPENTIN 100 MG CAP PO SCH (21:02)
[2023-08-15] MEDS: DOCUSATE SODIUM 100MG CAPSULE PO SCH (21:02)
[2023-08-15] MEDS: AMITRIPTYLINE 50 MG TAB PO SCH (21:03)
[2023-08-15] MEDS: HEPARIN SOD (PORCINE) 5000UNITS/ML 1ML VIAL/SYRINGE SC SCH (22:00)
[2023-08-16] VITALS (15 sets, daily range): BP systolic 161–219; BP diastolic 67–99; TEMP 99.1–101.2; O2SAT 94–100
[2023-08-16 05:11] LABS: HEMATOCRIT 31.8 % (42.0-52.0); HEMOGLOBIN 10.8 g/dl (13.5-17.5); MEAN CORPUSCULAR HEMOGLOBIN 33.8 pg (27.0-33.0); MEAN CORPUSCULAR VOLUME 99.4 fl (80.0-96.0); WHITE BLOOD COUNT 9.7 10^3/uL (4.0-10.0)
[2023-08-16 05:12] LABS: PLATELET COUNT, AUTOMATED 76 10^3/uL (150-450)
[2023-08-16 05:28] LABS: INR 1.36; PROTHROMBIN TIME 16.3 SECONDS (12.5-14.5)
[2023-08-16 05:42] LABS: ALKALINE PHOSPHATASE 146 U/L (46-116); ALT/SGPT 57 U/L (7.0-40); AST/SGOT 215 U/L (<34); BILIRUBIN,DIRECT 4.5 MG/DL (<0.4); BILIRUBIN,TOTAL 6.7 MG/DL (0.3-1.2); BLOOD UREA NITROGEN 16 MG/DL (9-23); CALCIUM LEVEL 8.1 MG/DL (8.5-10.1); CARBON DIOXIDE LEVEL 29 MMOL/L (20-31); CHLORIDE LEVEL 99 MMOL/L (98-107); CREATININE FOR GFR 1.12 MG/DL (0.70-1.30); GLOMERULAR FILTRATION RATE > 60.0 (>56); GLUCOSE, FASTING 109 MG/DL (60-100); POTASSIUM SERUM 4.1 MMOL/L (3.5-5.1); SODIUM LEVEL 131 MMOL/L (136-145); TOTAL PROTEIN 7.4 G/DL (5.7-8.2)
[2023-08-16] MEDS: TORSEMIDE 20 MG TAB PO SCH (08:12)
[2023-08-16] MEDS: CHLORTHALIDONE 25 MG TAB PO SCH (08:12)
[2023-08-16] MEDS: VITAMIN D 1,000 INTERNATIONAL UNITS TABLET PO SCH (08:13)
[2023-08-16] MEDS: LACTIC ACID 12% LOTION 225 GM BTL TOP SCH (08:13)
[2023-08-16] MEDS ORDERED: MELOXICAM (MOBIC) 7.5 MG TAB PO SCH (09:00)
[2023-08-16] MEDS ORDERED: dilTIAZem 120MG **CD** CAPSULE PO SCH (09:00)
[2023-08-16] MEDS: **hydrALAZINE** 50 MG TAB PO SCH (14:37)
[2023-08-16] MEDS: RIVAROXABAN 10MG TAB (XARELTO) PO SCH (18:04)
[2023-08-16] MEDS ORDERED: aMILoride 5 MG TAB PO SCH (21:00)
[2023-08-17] VITALS (14 sets, daily range): BP systolic 146–227; BP diastolic 65–99; TEMP 98.1–100.1; O2SAT 96–100
[2023-08-17 04:54] LABS: HEMATOCRIT 30.1 % (42.0-52.0); HEMOGLOBIN 10.4 g/dl (13.5-17.5); MEAN CORPUSCULAR HEMOGLOBIN 33.9 pg (27.0-33.0); MEAN CORPUSCULAR HGB CONC 34.6 g/dl (32.0-36.5); RED BLOOD COUNT 3.07 10^6/uL (4.30-6.10); WHITE BLOOD COUNT 10.4 10^3/uL (4.0-10.0)
[2023-08-17 04:55] LABS: PLATELET COUNT, AUTOMATED 79 10^3/uL (150-450)
[2023-08-17 05:09] LABS: INR 2.35; PROTHROMBIN TIME 24.9 SECONDS (12.5-14.5)
[2023-08-17 06:08] LABS: ALBUMIN 1.9 G/DL (3.2-5.2); ALKALINE PHOSPHATASE 128 U/L (46-116); ALT/SGPT 47 U/L (7.0-40); AST/SGOT 151 U/L (<34); BILIRUBIN,DIRECT 5.2 MG/DL (<0.4); BILIRUBIN,TOTAL 7.5 MG/DL (0.3-1.2); BLOOD UREA NITROGEN 19 MG/DL (9-23); CALCIUM LEVEL 8.6 MG/DL (8.5-10.1); CARBON DIOXIDE LEVEL 26 MMOL/L (20-31); CHLORIDE LEVEL 100 MMOL/L (98-107); CREATININE FOR GFR 1.04 MG/DL (0.70-1.30); GLOMERULAR FILTRATION RATE > 60.0 (>56); GLUCOSE, FASTING 93 MG/DL (60-100); POTASSIUM SERUM 3.8 MMOL/L (3.5-5.1); SODIUM LEVEL 130 MMOL/L (136-145); TOTAL PROTEIN 7.1 G/DL (5.7-8.2)
[2023-08-17 07:44] LABS: PROCALCITONIN 1.07 ng/ml
[2023-08-17] MEDS: prednisoLONE (PRELONE) 15MG/5ML SYRUP UDC PO SCH (11:21)
[2023-08-17 12:09] LABS: APPEARANCE, URINE CLEAR (CLEAR); BACTERIA, URINE AUTO NEGATIVE (NEGATIVE); BILIRUBIN, URINE AUTO NEGATIVE (NEGATIVE); BLOOD, URINE BLOOD NEGATIVE (NEGATIVE); COLOR, URINE AMBER (YELLOW); GLUCOSE, URINE (UA) AUTO NEGATIVE (NEGATIVE); KETONE, URINE AUTO NEGATIVE (NEGATIVE); LEUKOCYTE ESTERASE, URINE AUTO NEGATIVE (NEGATIVE); NITRITE, URINE AUTO NEGATIVE (NEGATIVE); PROTEIN, URINE AUTO NEGATIVE (NEGATIVE); RBC, URINE AUTO 2 /HPF (0-3); SPECIFIC GRAVITY URINE AUTO 1.011 (1.002-1.035); SQUAMOUS EPITHELIAL CELL UR AU 0 /HPF (0-6); UROBILINOGEN, URINE AUTO 0.2 mg/dL (0.0-2.0); WBC, URINE AUTO 1 /HPF (0-3)
[2023-08-17] MEDS: CAPTOpril 6.25 MG PER 1/2 TABLET PO ONE (12:33)
[2023-08-17] MEDS ORDERED: CAPTOpril 6.25 MG PER 1/2 TABLET PO SCH ×2 (14:00→22:00)
[2023-08-17] MEDS: LABETALOL 100MG/20ML VIAL IV PRN (15:29)
[2023-08-17] MEDS: **hydrALAZINE** 50 MG TAB PO SCH (21:19)
[2023-08-17] MEDS: CAPTOpril 12.5 MG TAB PO SCH (21:19)
[2023-08-18] VITALS (12 sets, daily range): BP systolic 142–165; BP diastolic 67–111; TEMP 97.7–99.2; O2SAT 95–99
[2023-08-18 04:34] LABS: HEMATOCRIT 29.7 % (42.0-52.0); HEMOGLOBIN 10.5 g/dl (13.5-17.5); MEAN CORPUSCULAR HEMOGLOBIN 34.4 pg (27.0-33.0); MEAN CORPUSCULAR HGB CONC 35.4 g/dl (32.0-36.5); MEAN CORPUSCULAR VOLUME 97.4 fl (80.0-96.0); PLATELET COUNT, AUTOMATED 112 10^3/uL (150-450); RED BLOOD COUNT 3.05 10^6/uL (4.30-6.10); WHITE BLOOD COUNT 11.3 10^3/uL (4.0-10.0)
[2023-08-18 04:45] LABS: INR 2.75; PROTHROMBIN TIME 28.1 SECONDS (12.5-14.5)
[2023-08-18 04:51] LABS: ALBUMIN 2.1 G/DL (3.2-5.2); ALKALINE PHOSPHATASE 132 U/L (46-116); ALT/SGPT 41 U/L (7.0-40); AST/SGOT 126 U/L (<34); BILIRUBIN,DIRECT 5.3 MG/DL (<0.4); BLOOD UREA NITROGEN 24 MG/DL (9-23); CALCIUM LEVEL 8.8 MG/DL (8.5-10.1); CARBON DIOXIDE LEVEL 25 MMOL/L (20-31); CHLORIDE LEVEL 99 MMOL/L (98-107); CREATININE FOR GFR 1.07 MG/DL (0.70-1.30); GLOMERULAR FILTRATION RATE > 60.0 (>56); GLUCOSE, FASTING 100 MG/DL (60-100); POTASSIUM SERUM 3.5 MMOL/L (3.5-5.1); SODIUM LEVEL 130 MMOL/L (136-145); TOTAL PROTEIN 7.3 G/DL (5.7-8.2)
[2023-08-18 05:52] LABS: PROCALCITONIN 1.09 ng/ml
[2023-08-18] MEDS ORDERED: NITROGLYCERIN 0.3MG SUBL TAB SL PRN ×2 (08:50→08:55)
[2023-08-18] MEDS ORDERED: NITROGLYCERIN 0.4MG SUBL TABLET As Ordered ONE (09:00)
[2023-08-18] MEDS: ASPIRIN 81MG CHEW TABLET PO ONE (09:05)
[2023-08-18] MEDS: METOPROLOL TART 50 MG TAB PO SCH (09:14)
[2023-08-18] MEDS: LACTULOSE 20GM/30ML SYRUP UDC PO SCH (11:50)
[2023-08-18 12:45] LABS: INR 2.08; PROTHROMBIN TIME 22.6 SECONDS (12.5-14.5)
[2023-08-18 12:54] LABS: ALBUMIN 1.9 G/DL (3.2-5.2); ALKALINE PHOSPHATASE 129 U/L (46-116); ALT/SGPT 48 U/L (7.0-40); AST/SGOT 137 U/L (<34); BILIRUBIN,TOTAL 7.4 MG/DL (0.3-1.2); BLOOD UREA NITROGEN 25 MG/DL (9-23); CALCIUM LEVEL 8.7 MG/DL (8.5-10.1); CARBON DIOXIDE LEVEL 25 MMOL/L (20-31); CHLORIDE LEVEL 100 MMOL/L (98-107); CREATININE FOR GFR 0.98 MG/DL (0.70-1.30); GLOMERULAR FILTRATION RATE > 60.0 (>56); GLUCOSE, FASTING 121 MG/DL (60-100); POTASSIUM SERUM 3.6 MMOL/L (3.5-5.1); SODIUM LEVEL 133 MMOL/L (136-145); TOTAL PROTEIN 7.7 G/DL (5.7-8.2)
[2023-08-18] MEDS: SENNA 8.6 MG TAB (SENOKOT) PO ONE (14:01)
[2023-08-18] MEDS: ATORVASTATIN 20 MG TAB PO SCH (21:21)
[2023-08-18] MEDS: SENOKOT S TAB PO SCH (21:22)
[2023-08-19] VITALS (7 sets, daily range): BP systolic 113–158; BP diastolic 61–77; TEMP 97.4–98.8; O2SAT 91–97
[2023-08-19 06:23] LABS: HEMATOCRIT 29.1 % (42.0-52.0); HEMOGLOBIN 10.3 g/dl (13.5-17.5); MEAN CORPUSCULAR HEMOGLOBIN 34.7 pg (27.0-33.0); MEAN CORPUSCULAR HGB CONC 35.4 g/dl (32.0-36.5); PLATELET COUNT, AUTOMATED 141 10^3/uL (150-450); RED BLOOD COUNT 2.97 10^6/uL (4.30-6.10)
[2023-08-19 06:49] LABS: ALKALINE PHOSPHATASE 128 U/L (46-116); ALT/SGPT 44 U/L (7.0-40); AST/SGOT 113 U/L (<34); BILIRUBIN,DIRECT 5.1 MG/DL (<0.4); BILIRUBIN,TOTAL 6.9 MG/DL (0.3-1.2); BLOOD UREA NITROGEN 30 MG/DL (9-23); CALCIUM LEVEL 8.8 MG/DL (8.5-10.1); CARBON DIOXIDE LEVEL 26 MMOL/L (20-31); CHLORIDE LEVEL 101 MMOL/L (98-107); CREATININE FOR GFR 1.03 MG/DL (0.70-1.30); GLOMERULAR FILTRATION RATE > 60.0 (>56); GLUCOSE, FASTING 111 MG/DL (60-100); POTASSIUM SERUM 3.2 MMOL/L (3.5-5.1); SODIUM LEVEL 133 MMOL/L (136-145); TOTAL PROTEIN 7.5 G/DL (5.7-8.2)
[2023-08-19 08:33] LABS: INR 2.38; PROTHROMBIN TIME 25.1 SECONDS (12.5-14.5)
[2023-08-19] MEDS: POTASSIUM CHLORIDE 10MEQ SR TABLET PO ONE (08:37)
[2023-08-19] MEDS: CARVedilol 12.5 MG TAB PO SCH (08:37)
[2023-08-19] MEDS: METAMUCIL (PSYLLIUM) PACKET PO SCH (09:00)
[2023-08-19] MEDS ORDERED: METAMUCIL (PSYLLIUM) PACKET PO PRN (14:40)
[2023-08-19] MEDS: LACTULOSE 20GM/30ML SYRUP UDC PO SCH (20:23)
[2023-08-19] MEDS ORDERED: SENOKOT S TAB PO PRN (21:00)
[2023-08-20 06:12] VITALS: BP 139/73; TEMP 98.8; O2SAT 96
[2023-08-20 07:14] LABS: HEMATOCRIT 27.2 % (42.0-52.0); HEMOGLOBIN 9.6 g/dl (13.5-17.5); MEAN CORPUSCULAR HEMOGLOBIN 34.7 pg (27.0-33.0); MEAN CORPUSCULAR HGB CONC 35.3 g/dl (32.0-36.5); MEAN CORPUSCULAR VOLUME 98.2 fl (80.0-96.0); PLATELET COUNT, AUTOMATED 137 10^3/uL (150-450); RED BLOOD COUNT 2.77 10^6/uL (4.30-6.10); WHITE BLOOD COUNT 9.4 10^3/uL (4.0-10.0)
[2023-08-20 07:25] LABS: INR 2.34; PROTHROMBIN TIME 24.8 SECONDS (12.5-14.5)
[2023-08-20 07:47] LABS: ALBUMIN 1.8 G/DL (3.2-5.2); ALKALINE PHOSPHATASE 121 U/L (46-116); ALT/SGPT 43 U/L (7.0-40); AST/SGOT 106 U/L (<34); BILIRUBIN,TOTAL 5.4 MG/DL (0.3-1.2); BLOOD UREA NITROGEN 32 MG/DL (9-23); CALCIUM LEVEL 8.9 MG/DL (8.5-10.1); CARBON DIOXIDE LEVEL 27 MMOL/L (20-31); CHLORIDE LEVEL 98 MMOL/L (98-107); CREATININE FOR GFR 1.03 MG/DL (0.70-1.30); GLOMERULAR FILTRATION RATE > 60.0 (>56); GLUCOSE, FASTING 100 MG/DL (60-100); SODIUM LEVEL 129 MMOL/L (136-145); TOTAL PROTEIN 6.8 G/DL (5.7-8.2)
[2023-08-20 08:45] VITALS: BP 139/73
[2023-08-20] MEDS ORDERED: MIRA3350 PO (10:29)
[2023-08-20] MEDS ORDERED: PRED15EL PO (10:29)
[2023-08-20] MEDS ORDERED: LISI20TA33 PO (10:29)
[2023-08-20] MEDS ORDERED: FOLI1TAB11 PO (10:29)
[2023-08-20] MEDS ORDERED: CARV25TA PO (10:29)
[2023-08-20] MEDS ORDERED: LACT20EL PO (10:29)
[2024-08-14] MEDS ORDERED: dilTIAZem 120MG **CD** CAPSULE PO SCH (09:00)
== END 2023-08-20 11:37 | disposition home or self-care (01) | DRG 433 ==
LOC: EDBD 07:19 → M ED 07:19 → M ED INP 14:05 → M ICU 17:08 → M PCU 08-18 12:53 → M MSPAV 08-19 17:47
PROVIDERS: ADMIT Student in an Organized Health Care Education/Training Program; ATTEND Student in an Organized Health Care Education/Training Program
DX: K70.10 Alcoholic hepatitis without ascites (principal); Z68.41 Body mass index [BMI] 40.0-44.9, adult; K76.6 Portal hypertension; F10.239 Alcohol dependence with withdrawal, unspecified; I10 Essential (primary) hypertension; K70.30 Alcoholic cirrhosis of liver without ascites; K76.0 Fatty (change of) liver, not elsewhere classified; E66.01 Morbid (severe) obesity due to excess calories; G89.29 Other chronic pain; G47.33 Obstructive sleep apnea (adult) (pediatric); M47.816 Spondylosis without myelopathy or radiculopathy, lumbar region; R16.1 Splenomegaly, not elsewhere classified; D72.819 Decreased white blood cell count, unspecified; R07.9 Chest pain, unspecified; Z91.148 Patient's other noncompliance with medication regimen for other reason; I45.10 Unspecified right bundle-branch block; Z79.899 Other long term (current) drug therapy; M54.50 Low back pain, unspecified; F32.A Depression, unspecified; Z89.022 Acquired absence of left finger(s); K82.4 Cholesterolosis of gallbladder; D13.4 Benign neoplasm of liver; F41.9 Anxiety disorder, unspecified; I87.8 Other specified disorders of veins

== ENCOUNTER → 2023-08-23 | Outpatient (CLI) | payer MEDICARE ==
[~2023-08-23] MED LIST changes: +AMIL5TAB4 PO; +AMIT50TA PO; +AMMO12CR7 TOP; +CARV25TA PO; +CLON0.5T2 PO; +D3 S1CAP3 PO; +DILT240C82 PO; +FOLI1TAB11 PO; +GABA-1171 PO; +LACT20EL PO; +LISI20TA33 PO; +MELO15TA28 PO; +MIRA3350 PO; +PRED15EL PO; +TORS20TA2 PO
[2023-08-23 17:27] LABS: INR 1.49; PROTHROMBIN TIME 17.6 SECONDS (12.5-14.5)
[2023-08-23 17:49] LABS: ALBUMIN 1.9 G/DL (3.2-5.2); ALKALINE PHOSPHATASE 136 U/L (46-116); ALT/SGPT 90 U/L (7.0-40); AST/SGOT 163 U/L (<34); BILIRUBIN,TOTAL 4.2 MG/DL (0.3-1.2); BLOOD UREA NITROGEN 31 MG/DL (9-23); CALCIUM LEVEL 8.8 MG/DL (8.5-10.1); CARBON DIOXIDE LEVEL 31 MMOL/L (20-31); CHLORIDE LEVEL 91 MMOL/L (98-107); CREATININE FOR GFR 1.11 MG/DL (0.70-1.30); GLOMERULAR FILTRATION RATE > 60.0 (>56); GLUCOSE, FASTING 152 MG/DL (60-100); POTASSIUM SERUM 3.6 MMOL/L (3.5-5.1); SODIUM LEVEL 127 MMOL/L (136-145); TOTAL PROTEIN 6.7 G/DL (5.7-8.2)
== END ==
LOC: M LAB 16:20
PROVIDERS: ATTEND Student in an Organized Health Care Education/Training Program
DX: K70.10 Alcoholic hepatitis without ascites (principal)

== ENCOUNTER → 2023-08-31 | Outpatient (REF) | payer MEDICARE ==
[2023-08-31 12:05] LABS: BASO # 0.1 10^3/uL (0.0-0.2); BASO % 0.6 % (0.0-1.0); EOS % 0.1 % (0.0-3.0); HEMATOCRIT 30.2 % (42.0-52.0); HEMOGLOBIN 9.9 g/dl (13.5-17.5); LYMPH # 2.5 10^3/uL (1.5-5.0); LYMPH % 16.2 % (24.0-44.0); MEAN CORPUSCULAR HEMOGLOBIN 34.1 pg (27.0-33.0); MEAN CORPUSCULAR HGB CONC 32.8 g/dl (32.0-36.5); MEAN CORPUSCULAR VOLUME 104.1 fl (80.0-96.0); MONO # 1.2 10^3/uL (0.0-0.8); MONO % 7.5 % (2.0-8.0); NEUTROPHILS # 11.7 10^3/uL (1.5-8.5); NEUTROPHILS % 75.2 % (36.0-66.0); PLATELET COUNT, AUTOMATED 253 10^3/uL (150-450); WHITE BLOOD COUNT 15.6 10^3/uL (4.0-10.0)
[2023-08-31 12:20] LABS: ALBUMIN 1.8 G/DL (3.2-5.2); ALKALINE PHOSPHATASE 122 U/L (46-116); ALT/SGPT 81 U/L (7.0-40); AST/SGOT 98 U/L (<34); BILIRUBIN,TOTAL 2.7 MG/DL (0.3-1.2); BLOOD UREA NITROGEN 13 MG/DL (9-23); CALCIUM LEVEL 8.9 MG/DL (8.5-10.1); CARBON DIOXIDE LEVEL 29 MMOL/L (20-31); CHLORIDE LEVEL 98 MMOL/L (98-107); CHOLESTEROL LEVEL 157 MG/DL (<200); CHOLESTEROL RISK RATIO 12.86 (<5); CREATININE FOR GFR 0.79 MG/DL (0.70-1.30); GLOMERULAR FILTRATION RATE > 60.0 (>56); GLUCOSE, FASTING 130 MG/DL (60-100); HDL CHOLESTEROL 12.2 MG/DL (>40); MAGNESIUM LEVEL 1.8 MG/DL (1.8-2.4); NON-HDL-C 144.8 MG/DL; POTASSIUM SERUM 4.6 MMOL/L (3.5-5.1); SODIUM LEVEL 132 MMOL/L (136-145); THYROID STIMULATING HORMONE 1.919 uIU/ML (0.55-4.78); TOTAL PROTEIN 6.3 G/DL (5.7-8.2); TRIGLYCERIDES LEVEL 104 MG/DL (<150)
[2023-08-31 12:52] LABS: HEMOGLOBIN A1c 4.7 % (4.0-6.0)
== END ==
LOC: M LAB REF 11:42
PROVIDERS: ATTEND Nurse Practitioner Family
DX: E66.01 Morbid (severe) obesity due to excess calories (principal); E07.9 Disorder of thyroid, unspecified

== ENCOUNTER → 2023-09-17 | Outpatient (REF) | payer MEDICARE ==
[2023-09-17 13:47] LABS: BASO # 0.1 10^3/uL (0.0-0.2); BASO % 0.5 % (0.0-1.0); EOS % 0.4 % (0.0-3.0); HEMATOCRIT 34.9 % (42.0-52.0); HEMOGLOBIN 11.9 g/dl (13.5-17.5); LYMPH # 1.7 10^3/uL (1.5-5.0); LYMPH % 17.5 % (24.0-44.0); MEAN CORPUSCULAR HEMOGLOBIN 33.6 pg (27.0-33.0); MEAN CORPUSCULAR HGB CONC 34.1 g/dl (32.0-36.5); MEAN CORPUSCULAR VOLUME 98.6 fl (80.0-96.0); MONO # 0.6 10^3/uL (0.0-0.8); MONO % 6.6 % (2.0-8.0); NEUTROPHILS # 7.3 10^3/uL (1.5-8.5); NEUTROPHILS % 74.8 % (36.0-66.0); PLATELET COUNT, AUTOMATED 143 10^3/uL (150-450); RED BLOOD COUNT 3.54 10^6/uL (4.30-6.10); WHITE BLOOD COUNT 9.7 10^3/uL (4.0-10.0)
[2023-09-17 14:18] LABS: ALBUMIN 2.2 G/DL (3.2-5.2); ALKALINE PHOSPHATASE 292 U/L (46-116); ALT/SGPT 57 U/L (7.0-40); AST/SGOT 33 U/L (<34); BILIRUBIN,TOTAL 1.3 MG/DL (0.3-1.2); BLOOD UREA NITROGEN 10 MG/DL (9-23); CARBON DIOXIDE LEVEL 30 MMOL/L (20-31); CHLORIDE LEVEL 97 MMOL/L (98-107); CREATININE FOR GFR 0.63 MG/DL (0.70-1.30); GLOMERULAR FILTRATION RATE > 60.0 (>56); GLUCOSE, FASTING 435 MG/DL (60-100); POTASSIUM SERUM 4.4 MMOL/L (3.5-5.1); SODIUM LEVEL 131 MMOL/L (136-145); TOTAL PROTEIN 6.6 G/DL (5.7-8.2)
== END ==
LOC: M LAB REF 12:44
PROVIDERS: ATTEND Nurse Practitioner Family
DX: D64.9 Anemia, unspecified (principal); R74.8 Abnormal levels of other serum enzymes

== ENCOUNTER → 2023-09-29 | Outpatient (CLI) | payer MEDICARE, OTHER | LOC: M PAIN 11:45 | PROVIDERS: ATTEND Anesthesiology | DX: M79.18 Myalgia, other site (principal); M54.50 Low back pain, unspecified; G89.29 Other chronic pain; Z79.899 Other long term (current) drug therapy; Z87.891 Personal history of nicotine dependence ==

== ENCOUNTER → 2023-11-23 | Outpatient (REF) | payer MEDICARE ==
[~2023-11-23] MED LIST changes: +FLAS1KIT2 MC; +INSU100I24 SQ; +LANTINJ4 SC
[2023-11-23 16:32] LABS: BASO # 0.1 10^3/uL (0.0-0.2); BASO % 1.4 % (0.0-1.0); EOS # 0.2 10^3/uL (0.0-0.5); EOS % 3.2 % (0.0-3.0); HEMATOCRIT 38.2 % (42.0-52.0); HEMOGLOBIN 12.8 g/dl (13.5-17.5); LYMPH # 2.3 10^3/uL (1.5-5.0); LYMPH % 32.3 % (24.0-44.0); MEAN CORPUSCULAR HEMOGLOBIN 31.2 pg (27.0-33.0); MEAN CORPUSCULAR HGB CONC 33.5 g/dl (32.0-36.5); MEAN CORPUSCULAR VOLUME 93.2 fl (80.0-96.0); MONO # 0.6 10^3/uL (0.0-0.8); MONO % 8.4 % (2.0-8.0); NEUTROPHILS # 3.9 10^3/uL (1.5-8.5); NEUTROPHILS % 54.4 % (36.0-66.0); WHITE BLOOD COUNT 7.2 10^3/uL (4.0-10.0)
[2023-11-23 16:36] LABS: PLATELET COUNT, AUTOMATED 84 10^3/uL (150-450)
[2023-11-23 16:43] LABS: INR 1.35; PROTHROMBIN TIME 16.3 SECONDS (12.5-14.5)
[2023-11-23 16:56] LABS: ALBUMIN 2.6 G/DL (3.2-5.2); ALKALINE PHOSPHATASE 330 U/L (46-116); ALT/SGPT 32 U/L (7.0-40); AST/SGOT 46 U/L (<34); BILIRUBIN,TOTAL 0.8 MG/DL (0.3-1.2); BLOOD UREA NITROGEN 12 MG/DL (9-23); CALCIUM LEVEL 9.3 MG/DL (8.5-10.1); CARBON DIOXIDE LEVEL 27 MMOL/L (20-31); CHLORIDE LEVEL 94 MMOL/L (98-107); CREATININE FOR GFR 0.54 MG/DL (0.70-1.30); GLOMERULAR FILTRATION RATE > 60.0 (>56); GLUCOSE, FASTING 458 MG/DL (60-100); MAGNESIUM LEVEL 1.6 MG/DL (1.8-2.4); POTASSIUM SERUM 4.2 MMOL/L (3.5-5.1); SODIUM LEVEL 128 MMOL/L (136-145); TOTAL PROTEIN 7.1 G/DL (5.7-8.2)
== END ==
LOC: M LAB REF 16:10
PROVIDERS: ATTEND Nurse Practitioner Family
DX: R74.8 Abnormal levels of other serum enzymes (principal); D64.9 Anemia, unspecified

== ENCOUNTER → 2023-11-24 | Outpatient (REF) | payer MEDICARE ==
[~2023-11-24] MED LIST changes: -FLAS1KIT2 MC; -INSU100I24 SQ; -LANTINJ4 SC
[2023-11-24 18:15] LABS: BASO # 0.1 10^3/uL (0.0-0.2); BASO % 1.5 % (0.0-1.0); EOS # 0.2 10^3/uL (0.0-0.5); EOS % 3.4 % (0.0-3.0); HEMATOCRIT 38.1 % (42.0-52.0); HEMOGLOBIN 12.6 g/dl (13.5-17.5); LYMPH # 2.2 10^3/uL (1.5-5.0); LYMPH % 32.5 % (24.0-44.0); MEAN CORPUSCULAR HEMOGLOBIN 31.3 pg (27.0-33.0); MEAN CORPUSCULAR HGB CONC 33.1 g/dl (32.0-36.5); MEAN CORPUSCULAR VOLUME 94.8 fl (80.0-96.0); MONO # 0.6 10^3/uL (0.0-0.8); MONO % 9.1 % (2.0-8.0); NEUTROPHILS # 3.6 10^3/uL (1.5-8.5); NEUTROPHILS % 53.4 % (36.0-66.0); RED BLOOD COUNT 4.02 10^6/uL (4.30-6.10); WHITE BLOOD COUNT 6.7 10^3/uL (4.0-10.0)
[2023-11-24 18:35] LABS: PLATELET COUNT, AUTOMATED 87 10^3/uL (150-450)
[2023-11-24 18:37] LABS: HEMOGLOBIN A1c > 14.0 % (4.0-6.0)
[2023-11-24 19:44] LABS: ALBUMIN 2.6 G/DL (3.2-5.2); ALKALINE PHOSPHATASE 281 U/L (46-116); ALT/SGPT 34 U/L (7.0-40); AST/SGOT 48 U/L (<34); BILIRUBIN,TOTAL 0.8 MG/DL (0.3-1.2); BLOOD UREA NITROGEN 9 MG/DL (9-23); CALCIUM LEVEL 9.4 MG/DL (8.5-10.1); CARBON DIOXIDE LEVEL 25 MMOL/L (20-31); CHLORIDE LEVEL 96 MMOL/L (98-107); CREATININE FOR GFR 0.53 MG/DL (0.70-1.30); GLOMERULAR FILTRATION RATE > 60.0 (>56); POTASSIUM SERUM 4.1 MMOL/L (3.5-5.1); SODIUM LEVEL 129 MMOL/L (136-145)
[2023-11-24 23:08] LABS: GLUCOSE, FASTING 576 MG/DL (60-100)
== END ==
LOC: M LAB REF 17:20
PROVIDERS: ATTEND Nurse Practitioner Family
DX: R73.9 Hyperglycemia, unspecified (principal); K74.60 Unspecified cirrhosis of liver; D64.9 Anemia, unspecified

== ENCOUNTER 2023-11-26 08:14 | Observation (INO) | payer MEDICARE ==
[~2023-11-26] VITALS: Ht 180.3 cm; Wt 115.8 kg
[2023-11-26] MEDS ORDERED: LEVEMIR (INSULIN DETEMIR) 1 UNITS/0.01ML SC SCH ×2 (09:00→21:00)
[2023-11-26] MEDS: NS 1,000 ML IV ONE (09:07)
[2023-11-26 09:32] LABS: VENOUS BASE EXCESS -0.4 (-2.0-2.0); VENOUS HCO3 25.9 MMOL/L (23.0-27.0); VENOUS O2 SATURATION 59.5 % (60.0-80.0); VENOUS PARTIAL PRESSURE CO2 49.1 mmHg (38.0-50.0); VENOUS PARTIAL PRESSURE O2 33.5 mmHg (30.0-50.0); VENOUS STANDARD HCO3 23.2 MMOL/L; VENOUS TOTAL CO2 27.4 MMOL/L (24.0-28.0)
[2023-11-26 09:42] LABS: BASO # 0.1 10^3/uL (0.0-0.2); BASO % 1.3 % (0.0-1.0); EOS # 0.2 10^3/uL (0.0-0.5); EOS % 2.9 % (0.0-3.0); HEMATOCRIT 37.4 % (42.0-52.0); HEMOGLOBIN 12.7 g/dl (13.5-17.5); LYMPH # 2.3 10^3/uL (1.5-5.0); LYMPH % 37.5 % (24.0-44.0); MEAN CORPUSCULAR HEMOGLOBIN 31.3 pg (27.0-33.0); MEAN CORPUSCULAR VOLUME 92.1 fl (80.0-96.0); MONO # 0.6 10^3/uL (0.0-0.8); MONO % 9.5 % (2.0-8.0); NEUTROPHILS % 48.6 % (36.0-66.0); PLATELET COUNT, AUTOMATED 99 10^3/uL (150-450); RED BLOOD COUNT 4.06 10^6/uL (4.30-6.10); WHITE BLOOD COUNT 6.2 10^3/uL (4.0-10.0)
[2023-11-26 09:56] LABS: HEMOGLOBIN A1c > 14.0 % (4.0-6.0)
[2023-11-26 10:07] LABS: LIPASE 37 U/L (12-53)
[2023-11-26 10:21] LABS: ALBUMIN 2.6 G/DL (3.2-5.2); ALKALINE PHOSPHATASE 299 U/L (46-116); ALT/SGPT 37 U/L (7.0-40); AST/SGOT 51 U/L (<34); BILIRUBIN,DIRECT 0.4 MG/DL (<0.4); BILIRUBIN,TOTAL 0.9 MG/DL (0.3-1.2); BLOOD UREA NITROGEN 6 MG/DL (9-23); CALCIUM LEVEL 9.2 MG/DL (8.5-10.1); CARBON DIOXIDE LEVEL 28 MMOL/L (20-31); CHLORIDE LEVEL 95 MMOL/L (98-107); CREATININE FOR GFR 0.53 MG/DL (0.70-1.30); GLOMERULAR FILTRATION RATE > 60.0 (>56); GLUCOSE, FASTING 481 MG/DL (60-100); MAGNESIUM LEVEL 1.6 MG/DL (1.8-2.4); PHOSPHORUS LEVEL 3.9 MG/DL (2.5-4.9); POTASSIUM SERUM 3.9 MMOL/L (3.5-5.1); SODIUM LEVEL 128 MMOL/L (136-145); TOTAL PROTEIN 7.1 G/DL (5.7-8.2)
[2023-11-26 10:48] LABS: OSMOLALITY SERUM 296 MOSM/KG (275-295)
[2023-11-26] MEDS ORDERED: CARV25TA PO (10:50)
[2023-11-26] MEDS ORDERED: LACT20EL PO (10:50)
[2023-11-26] MEDS ORDERED: FOLI1TAB11 PO (10:50)
[2023-11-26] MEDS ORDERED: LISI20TA33 PO (10:50)
[2023-11-26] MEDS ORDERED: HOME MED LIST COMPLETE! XX SCH (10:55)
[2023-11-26] MEDS: HumuLIN R (REGULAR) INSULIN (NovoLIN R) **100U/ML** PER UNIT IV ONE (11:15)
[2023-11-26] MEDS ORDERED: GLUCOSE 4 GM CHEW PO PRN (12:30)
[2023-11-26] MEDS ORDERED: DEXTROSE 50% 50ML SYRINGE IV PRN (12:30)
[2023-11-26] MEDS ORDERED: ACETAMINOPHEN TAB 650MG DOSE (2X325MG) PO PRN (12:30)
[2023-11-26] MEDS ORDERED: GLUCAGON INJ 1MG VIAL SC PRN (12:30)
[2023-11-26] MEDS: LEVEMIR (INSULIN DETEMIR) 1 UNITS/0.01ML SC SCH ×2 (13:00→21:56)
[2023-11-26 13:06] LABS: CHOLESTEROL LEVEL 152 MG/DL (<200); CHOLESTEROL RISK RATIO 10.06 (<5); HDL CHOLESTEROL 15.1 MG/DL (>40); LDL CHOLESTEROL 83.7 MG/DL (<100); NON-HDL-C 136.9 MG/DL; TRIGLYCERIDES LEVEL 266 MG/DL (<150)
[2023-11-26] MEDS: INSULIN LISPRO (NovoLOG) PER UNIT SC SCH ×2 (13:18→21:55)
[2023-11-26] MEDS: MAG SULF 1GM/100ML (MAG RUN) 1 GM in IV 1 EA IV ONE (13:18)
[2023-11-26] MEDS: HEPARIN SOD (PORCINE) 5000UNITS/ML 1ML VIAL/SYRINGE SQ SCH (14:47)
[2023-11-26 17:08] VITALS: BP 169/88; TEMP 98.2; O2SAT 99
[2023-11-26 18:00] VITALS: BP 158/72
[2023-11-26] MEDS: cefTRIAXone SOD 1 GM in D5W MINI-BAG PLUS 50 ML IV SCH (18:36)
[2023-11-26 20:00] VITALS: BP 154/71; TEMP 97.9; O2SAT 95
[2023-11-26] MEDS ORDERED: INSULIN LISPRO (NovoLOG) PER UNIT SC SCH (21:00)
[2023-11-26] MEDS: GABAPENTIN 100 MG CAP PO SCH (21:51)
[2023-11-26] MEDS: AMITRIPTYLINE 50 MG TAB PO SCH (21:51)
[2023-11-26] MEDS: CARVedilol 12.5 MG TAB PO SCH (21:52)
[2023-11-26] MEDS: LACTULOSE 20GM/30ML SYRUP UDC PO SCH (21:53)
[2023-11-26] MEDS: clonazePAM 0.5 MG TAB PO SCH (21:53)
[2023-11-27 04:00] VITALS: BP 116/54; TEMP 97.7; O2SAT 96
[2023-11-27 06:37] LABS: HEMATOCRIT 37.7 % (42.0-52.0); HEMOGLOBIN 12.6 g/dl (13.5-17.5); MEAN CORPUSCULAR HEMOGLOBIN 30.7 pg (27.0-33.0); MEAN CORPUSCULAR HGB CONC 33.4 g/dl (32.0-36.5); MEAN CORPUSCULAR VOLUME 91.7 fl (80.0-96.0); PLATELET COUNT, AUTOMATED 94 10^3/uL (150-450); RED BLOOD COUNT 4.11 10^6/uL (4.30-6.10)
[2023-11-27 07:02] LABS: ALBUMIN 2.4 G/DL (3.2-5.2); ALKALINE PHOSPHATASE 198 U/L (46-116); ALT/SGPT 33 U/L (7.0-40); AST/SGOT 46 U/L (<34); BILIRUBIN,TOTAL 1.1 MG/DL (0.3-1.2); BLOOD UREA NITROGEN 7 MG/DL (9-23); CALCIUM LEVEL 8.9 MG/DL (8.5-10.1); CARBON DIOXIDE LEVEL 26 MMOL/L (20-31); CHLORIDE LEVEL 102 MMOL/L (98-107); CREATININE FOR GFR 0.46 MG/DL (0.70-1.30); GLOMERULAR FILTRATION RATE > 60.0 (>56); GLUCOSE, FASTING 248 MG/DL (60-100); POTASSIUM SERUM 3.3 MMOL/L (3.5-5.1); SODIUM LEVEL 135 MMOL/L (136-145); TOTAL PROTEIN 6.5 G/DL (5.7-8.2)
[2023-11-27] MEDS: FOLIC ACID 1MG TAB PO SCH (08:49)
[2023-11-27] MEDS: POTASSIUM CHLORIDE 10MEQ SR TABLET PO ONE (08:51)
[2023-11-27] MEDS: INSULIN LISPRO (NovoLOG) PER UNIT SC SCH ×3 (08:58→18:38)
[2023-11-27] MEDS: LEVEMIR (INSULIN DETEMIR) 1 UNITS/0.01ML SC SCH ×2 (08:59→23:03)
[2023-11-27] MEDS ORDERED: LEVEMIR (INSULIN DETEMIR) 1 UNITS/0.01ML SC SCH ×2 (09:00→21:00)
[2023-11-27] MEDS: LACTIC ACID 12% LOTION 225 GM BTL TOP SCH (09:05)
[2023-11-27 12:00] VITALS: BP 125/66; TEMP 97.9; O2SAT 97
[2023-11-27] MEDS ORDERED: PROHANCE 279.3MG/ML 5ML VIAL As Ordered ONE (16:50)
[2023-11-27] MEDS ORDERED: PROHANCE 279.3MG/ML 15ML VIAL As Ordered ONE (16:50)
[2023-11-27 17:32] LABS: PERCENT SATURATION 33.2 % (19.7-50.0)
[2023-11-27 17:34] LABS: FERRITIN 472.3 NG/ML (10.5-307.3)
[2023-11-27 17:47] LABS: FOLATE 22.25 NG/ML (>5.4)
[2023-11-27 20:00] VITALS: BP 144/71; TEMP 98.1; O2SAT 93
[2023-11-28 04:00] VITALS: BP 134/67; TEMP 97.9; O2SAT 96
[2023-11-28 06:11] LABS: HEMATOCRIT 35.9 % (42.0-52.0); HEMOGLOBIN 12.2 g/dl (13.5-17.5); MEAN CORPUSCULAR HEMOGLOBIN 31.4 pg (27.0-33.0); MEAN CORPUSCULAR VOLUME 92.5 fl (80.0-96.0); RED BLOOD COUNT 3.88 10^6/uL (4.30-6.10); WHITE BLOOD COUNT 5.8 10^3/uL (4.0-10.0)
[2023-11-28 06:16] LABS: PLATELET COUNT, AUTOMATED 92 10^3/uL (150-450)
[2023-11-28 06:31] LABS: ALBUMIN 2.3 G/DL (3.2-5.2); ALKALINE PHOSPHATASE 177 U/L (46-116); ALT/SGPT 33 U/L (7.0-40); AST/SGOT 50 U/L (<34); BLOOD UREA NITROGEN 7 MG/DL (9-23); CARBON DIOXIDE LEVEL 27 MMOL/L (20-31); CHLORIDE LEVEL 104 MMOL/L (98-107); CREATININE FOR GFR 0.61 MG/DL (0.70-1.30); GLOMERULAR FILTRATION RATE > 60.0 (>56); GLUCOSE, FASTING 274 MG/DL (60-100); POTASSIUM SERUM 3.4 MMOL/L (3.5-5.1); SODIUM LEVEL 135 MMOL/L (136-145); TOTAL PROTEIN 6.2 G/DL (5.7-8.2)
[2023-11-28] MEDS ORDERED: LEVEMIR (INSULIN DETEMIR) 1 UNITS/0.01ML SC SCH (09:00)
[2023-11-28] MEDS: POTASSIUM CHLORIDE 10MEQ SR TABLET PO ONE ×2 (09:20→11:21)
[2023-11-28] MEDS: LEVEMIR (INSULIN DETEMIR) 1 UNITS/0.01ML SC SCH ×2 (09:21→21:35)
[2023-11-28 12:00] VITALS: BP 118/64; TEMP 97.9; O2SAT 98
[2023-11-28 21:00] VITALS: BP 100/86; TEMP 98.8; O2SAT 98
[2023-11-29 03:45] VITALS: BP 121/60; TEMP 97.9; O2SAT 97
[2023-11-29 07:15] LABS: HEMATOCRIT 37.9 % (42.0-52.0); HEMOGLOBIN 12.8 g/dl (13.5-17.5); MEAN CORPUSCULAR HEMOGLOBIN 31.5 pg (27.0-33.0); MEAN CORPUSCULAR HGB CONC 33.8 g/dl (32.0-36.5); MEAN CORPUSCULAR VOLUME 93.3 fl (80.0-96.0); PLATELET COUNT, AUTOMATED 101 10^3/uL (150-450); RED BLOOD COUNT 4.06 10^6/uL (4.30-6.10); WHITE BLOOD COUNT 5.7 10^3/uL (4.0-10.0)
[2023-11-29 07:45] LABS: ALBUMIN 2.3 G/DL (3.2-5.2); ALKALINE PHOSPHATASE 200 U/L (46-116); ALT/SGPT 40 U/L (7.0-40); AST/SGOT 60 U/L (<34); BILIRUBIN,TOTAL 1.1 MG/DL (0.3-1.2); BLOOD UREA NITROGEN 6 MG/DL (9-23); CALCIUM LEVEL 9.1 MG/DL (8.5-10.1); CARBON DIOXIDE LEVEL 27 MMOL/L (20-31); CHLORIDE LEVEL 105 MMOL/L (98-107); CREATININE FOR GFR 0.47 MG/DL (0.70-1.30); GLOMERULAR FILTRATION RATE > 60.0 (>56); GLUCOSE, FASTING 181 MG/DL (60-100); POTASSIUM SERUM 3.6 MMOL/L (3.5-5.1); SODIUM LEVEL 136 MMOL/L (136-145); TOTAL PROTEIN 6.5 G/DL (5.7-8.2)
[2023-11-29] MEDS: INSULIN LISPRO (NovoLOG) PER UNIT SC SCH ×2 (09:35→12:59)
[2023-11-29 09:38] VITALS: BP 150/77
[2023-11-29 12:00] VITALS: BP 147/76; TEMP 98.1; O2SAT 98
[2023-11-29] MEDS ORDERED: INSU100I24 SQ (12:24)
[2023-11-29] MEDS ORDERED: FLAS1KIT2 MC (12:24)
[2023-11-29] MEDS ORDERED: LANTINJ4 SC (12:24)
[2023-11-29] MEDS ORDERED: LEVEMIR (INSULIN DETEMIR) 1 UNITS/0.01ML SC SCH (21:00)
[2023-11-30] MEDS ORDERED: LEVEMIR (INSULIN DETEMIR) 1 UNITS/0.01ML SC SCH (09:00)
== END 2023-11-29 14:40 | disposition home or self-care (01) ==
LOC: M ED 08:14 → M ED INP 08:15 → M MSPAV 17:07
PROVIDERS: ADMIT Internal Medicine; ATTEND Internal Medicine
DX: E11.65 Type 2 diabetes mellitus with hyperglycemia (principal); K76.89 Other specified diseases of liver; E87.6 Hypokalemia; E78.5 Hyperlipidemia, unspecified; K74.60 Unspecified cirrhosis of liver; G89.4 Chronic pain syndrome; I10 Essential (primary) hypertension; I25.10 Atherosclerotic heart disease of native coronary artery without angina pectoris; I25.2 Old myocardial infarction; F41.9 Anxiety disorder, unspecified; F32.A Depression, unspecified; E66.01 Morbid (severe) obesity due to excess calories; I73.9 Peripheral vascular disease, unspecified; F10.11 Alcohol abuse, in remission; G47.33 Obstructive sleep apnea (adult) (pediatric); R16.1 Splenomegaly, not elsewhere classified; Z79.899 Other long term (current) drug therapy; Z79.4 Long term (current) use of insulin
CPT/HCPCS: 36415; 71045; 74183; 80048; 80053; 80061; 80076; 81001; 82010; 82607; 82728; 82746; 82803; 83036; 83550; 83690; 83735; 83930; 84100; 85025; 85027; 85049; 85055; 87086; 93005; 93041; 94760; 96361; 96365; 96366; 96375; 99285; A9576; G0378; J0696; J1815; J3475

== ENCOUNTER → 2023-12-09 | Outpatient (REF) | payer MEDICARE ==
[~2023-12-09] MED LIST changes: +FLAS1KIT2 MC; +INSU100I24 SQ; +LANTINJ4 SC
[2023-12-09 19:10] LABS: ALBUMIN 2.5 G/DL (3.2-5.2); ALKALINE PHOSPHATASE 226 U/L (46-116); ALT/SGPT 33 U/L (7.0-40); AST/SGOT 41 U/L (<34); BILIRUBIN,TOTAL 1.1 MG/DL (0.3-1.2); BLOOD UREA NITROGEN 6 MG/DL (9-23); CALCIUM LEVEL 8.6 MG/DL (8.5-10.1); CARBON DIOXIDE LEVEL 28 MMOL/L (20-31); CHLORIDE LEVEL 101 MMOL/L (98-107); CREATININE FOR GFR 0.55 MG/DL (0.70-1.30); GLOMERULAR FILTRATION RATE > 60.0 (>56); GLUCOSE, FASTING 231 MG/DL (60-100); POTASSIUM SERUM 4.5 MMOL/L (3.5-5.1); SODIUM LEVEL 132 MMOL/L (136-145)
== END ==
LOC: M LAB REF 17:32
PROVIDERS: ATTEND Nurse Practitioner Family
DX: E87.1 Hypo-osmolality and hyponatremia (principal)

== ENCOUNTER → 2023-12-22 | Outpatient (REF) | payer MEDICARE ==
[2023-12-22 17:18] LABS: ALBUMIN 2.6 G/DL (3.2-5.2); ALKALINE PHOSPHATASE 251 U/L (46-116); ALT/SGPT 23 U/L (7.0-40); AST/SGOT 27 U/L (<34); BILIRUBIN,TOTAL 0.9 MG/DL (0.3-1.2); BLOOD UREA NITROGEN 7 MG/DL (9-23); CALCIUM LEVEL 8.9 MG/DL (8.5-10.1); CARBON DIOXIDE LEVEL 29 MMOL/L (20-31); CHLORIDE LEVEL 104 MMOL/L (98-107); GLOMERULAR FILTRATION RATE > 60.0 (>56); GLUCOSE, FASTING 213 MG/DL (60-100); POTASSIUM SERUM 4.8 MMOL/L (3.5-5.1); SODIUM LEVEL 136 MMOL/L (136-145); TOTAL PROTEIN 7.4 G/DL (5.7-8.2)
== END ==
LOC: M LAB REF 16:24
PROVIDERS: ATTEND Nurse Practitioner Family
DX: E11.65 Type 2 diabetes mellitus with hyperglycemia (principal)

== ENCOUNTER → 2024-01-17 | Outpatient (REF) | payer MEDICARE ==
[~2024-01-17] MED LIST changes: +METF-838
[2024-01-17 19:20] LABS: ALBUMIN 2.9 G/DL (3.2-5.2); ALKALINE PHOSPHATASE 207 U/L (46-116); ALT/SGPT 20 U/L (7.0-40); AST/SGOT 34 U/L (<34); BLOOD UREA NITROGEN 11 MG/DL (9-23); CALCIUM LEVEL 8.8 MG/DL (8.5-10.1); CARBON DIOXIDE LEVEL 26 MMOL/L (20-31); CHLORIDE LEVEL 103 MMOL/L (98-107); CREATININE FOR GFR 0.69 MG/DL (0.70-1.30); GLOMERULAR FILTRATION RATE > 60.0 (>56); GLUCOSE, FASTING 110 MG/DL (60-100); POTASSIUM SERUM 4.3 MMOL/L (3.5-5.1); SODIUM LEVEL 135 MMOL/L (136-145); TOTAL PROTEIN 7.1 G/DL (5.7-8.2)
[2024-01-17 19:26] LABS: HEMOGLOBIN A1c 8.5 % (4.0-6.0)
== END ==
LOC: M LAB REF 16:39
PROVIDERS: ATTEND Nurse Practitioner Family
DX: E87.1 Hypo-osmolality and hyponatremia (principal); E11.65 Type 2 diabetes mellitus with hyperglycemia

== ENCOUNTER → 2024-03-07 | Outpatient (REF) | payer MEDICARE, MEDICAID ==
[2024-03-07 17:29] LABS: HEMOGLOBIN A1c 5.5 % (4.0-6.0)
[2024-03-07 17:39] LABS: ALBUMIN 2.8 G/DL (3.2-5.2); ALKALINE PHOSPHATASE 155 U/L (40-129); ALT/SGPT 25 U/L (7.0-40); AST/SGOT 33 U/L (<34); BILIRUBIN,TOTAL 0.6 MG/DL (0.3-1.2); BLOOD UREA NITROGEN 11 MG/DL (9-23); CALCIUM LEVEL 8.9 MG/DL (8.5-10.1); CARBON DIOXIDE LEVEL 25 MMOL/L (20-31); CHLORIDE LEVEL 103 MMOL/L (98-107); CREATININE FOR GFR 0.59 MG/DL (0.70-1.30); GLOMERULAR FILTRATION RATE > 60.0 (>56); GLUCOSE, FASTING 139 MG/DL (60-100); POTASSIUM SERUM 4.4 MMOL/L (3.5-5.1); SODIUM LEVEL 134 MMOL/L (136-145)
== END ==
LOC: M LAB REF 16:48
PROVIDERS: ATTEND Nurse Practitioner Family
DX: E11.65 Type 2 diabetes mellitus with hyperglycemia (principal)

== ENCOUNTER → 2024-03-08 | Outpatient (CLI) | payer MEDICARE, OTHER | LOC: M PAIN 09:15 | PROVIDERS: ATTEND Anesthesiology | DX: M51.16 Intervertebral disc disorders with radiculopathy, lumbar region (principal); M48.061 Spinal stenosis, lumbar region without neurogenic claudication; G89.29 Other chronic pain; G47.30 Sleep apnea, unspecified; I73.9 Peripheral vascular disease, unspecified; F32.A Depression, unspecified; I25.2 Old myocardial infarction; Z87.891 Personal history of nicotine dependence; Z79.899 Other long term (current) drug therapy ==

== ENCOUNTER → 2024-04-08 | Outpatient (CLI) | payer MEDICARE | LOC: M RAD 11:27 | PROVIDERS: ATTEND Anesthesiology | DX: M47.816 Spondylosis without myelopathy or radiculopathy, lumbar region (principal); M51.26 Other intervertebral disc displacement, lumbar region ==

== ENCOUNTER → 2024-05-10 | Outpatient (CLI) | payer MEDICARE, OTHER | LOC: M PAIN 11:15 | PROVIDERS: ATTEND Anesthesiology | DX: M51.16 Intervertebral disc disorders with radiculopathy, lumbar region (principal); G89.29 Other chronic pain; I73.9 Peripheral vascular disease, unspecified; F32.A Depression, unspecified; I25.2 Old myocardial infarction; G47.30 Sleep apnea, unspecified; Z87.891 Personal history of nicotine dependence; Z79.84 Long term (current) use of oral hypoglycemic drugs; Z79.899 Other long term (current) drug therapy ==

== ENCOUNTER → 2024-06-06 | Outpatient (REF) | payer MEDICARE, MEDICAID ==
[2024-06-06 18:27] LABS: HEMOGLOBIN A1c 5.6 % (4.0-6.0)
[2024-06-06 18:41] LABS: ALBUMIN 2.9 G/DL (3.2-5.2); ALKALINE PHOSPHATASE 117 U/L (40-129); ALT/SGPT 26 U/L (7.0-40); AST/SGOT 39 U/L (<34); BILIRUBIN,TOTAL 0.6 MG/DL (0.3-1.2); BLOOD UREA NITROGEN 15 MG/DL (9-23); CALCIUM LEVEL 8.4 MG/DL (8.3-10.6); CARBON DIOXIDE LEVEL 27 MMOL/L (20-31); CHLORIDE LEVEL 99 MMOL/L (98-107); CREATININE FOR GFR 0.85 MG/DL (0.70-1.30); GLOMERULAR FILTRATION RATE > 60.0 (>49); GLUCOSE, FASTING 111 MG/DL (74-106); POTASSIUM SERUM 4.6 MMOL/L (3.5-5.1); SODIUM LEVEL 137 MMOL/L (136-145); TOTAL PROTEIN 7.3 G/DL (5.7-8.2)
== END ==
LOC: M LAB REF 16:50
PROVIDERS: ATTEND Nurse Practitioner Family
DX: E11.9 Type 2 diabetes mellitus without complications (principal)

== ENCOUNTER → 2024-06-08 | Outpatient (CLI) | payer MEDICARE, OTHER | LOC: M PAIN 10:00 | PROVIDERS: ATTEND Anesthesiology | DX: M51.16 Intervertebral disc disorders with radiculopathy, lumbar region (principal); G89.29 Other chronic pain; E11.51 Type 2 diabetes mellitus with diabetic peripheral angiopathy without gangrene; G47.30 Sleep apnea, unspecified; F32.A Depression, unspecified; I25.2 Old myocardial infarction; Z87.891 Personal history of nicotine dependence; Z79.4 Long term (current) use of insulin; Z79.899 Other long term (current) drug therapy ==

== ENCOUNTER → 2024-09-06 | Outpatient (REF) | payer MEDICARE ==
[2024-09-06 13:22] LABS: BASO # 0.1 10^3/uL (0.0-0.2); BASO % 0.6 % (0.0-1.0); EOS # 0.3 10^3/uL (0.0-0.5); EOS % 2.3 % (0.0-3.0); HEMATOCRIT 35.1 % (42.0-52.0); HEMOGLOBIN 11.4 g/dl (13.5-17.5); LYMPH # 2.7 10^3/uL (1.5-5.0); LYMPH % 24.5 % (24.0-44.0); MEAN CORPUSCULAR HEMOGLOBIN 32.1 pg (27.0-33.0); MEAN CORPUSCULAR HGB CONC 32.5 g/dl (32.0-36.5); MEAN CORPUSCULAR VOLUME 98.9 fl (80.0-96.0); MONO # 1.3 10^3/uL (0.0-0.8); MONO % 12.1 % (2.0-8.0); NEUTROPHILS # 6.6 10^3/uL (1.5-8.5); NEUTROPHILS % 60.2 % (36.0-66.0); PLATELET COUNT, AUTOMATED 172 10^3/uL (150-450); RED BLOOD COUNT 3.55 10^6/uL (4.30-6.10); WHITE BLOOD COUNT 10.9 10^3/uL (4.0-10.0)
[2024-09-06 13:48] LABS: BILIRUBIN,TOTAL 0.3 MG/DL (0.3-1.2); CALCIUM LEVEL 9.4 MG/DL (8.3-10.6); CHOLESTEROL RISK RATIO 5.05 (<5); CREATININE FOR GFR 2.86 MG/DL (0.70-1.30); GLOMERULAR FILTRATION RATE 24.4 (>49); HDL CHOLESTEROL 25.3 MG/DL (>40); LDL CHOLESTEROL 77.9 MG/DL (<100); MAGNESIUM LEVEL 2.2 MG/DL (1.8-2.4); NON-HDL-C 102.7 MG/DL; POTASSIUM SERUM 5.3 MMOL/L (3.5-5.1); TOTAL PROTEIN 7.2 G/DL (5.7-8.2)
[2024-09-06 13:50] LABS: THYROID STIMULATING HORMONE 2.577 uIU/ML (0.55-4.78); TOTAL 25(OH) VITAMIN D 45.4 NG/ML (20.0-100.0)
[2024-09-06 14:08] LABS: HEMOGLOBIN A1c 5.6 % (4.0-6.0)
== END ==
LOC: M LAB REF 12:24
PROVIDERS: ATTEND Nurse Practitioner Family
DX: E11.9 Type 2 diabetes mellitus without complications (principal); E66.9 Obesity, unspecified; E55.9 Vitamin D deficiency, unspecified

== ENCOUNTER → 2024-09-14 | Outpatient (CLI) | payer MEDICARE ==
[~2024-09-14] MED LIST changes: +AMMO12CR4 TOP; -AMMO12CR7 TOP
[2024-09-14 10:12] LABS: BASO # 0.1 10^3/uL (0.0-0.2); BASO % 0.8 % (0.0-1.0); EOS # 0.3 10^3/uL (0.0-0.5); EOS % 4.4 % (0.0-3.0); HEMATOCRIT 34.9 % (42.0-52.0); HEMOGLOBIN 11.2 g/dl (13.5-17.5); LYMPH # 2.1 10^3/uL (1.5-5.0); LYMPH % 29.1 % (24.0-44.0); MEAN CORPUSCULAR HEMOGLOBIN 32.3 pg (27.0-33.0); MEAN CORPUSCULAR HGB CONC 32.1 g/dl (32.0-36.5); MEAN CORPUSCULAR VOLUME 100.6 fl (80.0-96.0); MONO % 13.1 % (2.0-8.0); NEUTROPHILS # 3.8 10^3/uL (1.5-8.5); NEUTROPHILS % 52.2 % (36.0-66.0); PLATELET COUNT, AUTOMATED 153 10^3/uL (150-450); RED BLOOD COUNT 3.47 10^6/uL (4.30-6.10); WHITE BLOOD COUNT 7.3 10^3/uL (4.0-10.0)
[2024-09-14 10:33] LABS: ALKALINE PHOSPHATASE 102 U/L (40-129); ALT/SGPT 34 U/L (7.0-40); AST/SGOT 42 U/L (<34); BILIRUBIN,TOTAL 0.6 MG/DL (0.3-1.2); BLOOD UREA NITROGEN 28 MG/DL (9-23); CALCIUM LEVEL 9.6 MG/DL (8.3-10.6); CARBON DIOXIDE LEVEL 26 MMOL/L (20-31); CHLORIDE LEVEL 104 MMOL/L (98-107); CREATININE FOR GFR 1.87 MG/DL (0.70-1.30); GLOMERULAR FILTRATION RATE 40.7 (>49); GLUCOSE, FASTING 132 MG/DL (74-106); IRON (FE) 68 UG/DL (65-175); PERCENT SATURATION 22.3 % (19.7-50.0); POTASSIUM SERUM 5.2 MMOL/L (3.5-5.1); SODIUM LEVEL 137 MMOL/L (136-145); TOTAL IRON BINDING CAPACITY 305 UG/DL (250-425); TOTAL PROTEIN 7.2 G/DL (5.7-8.2)
[2024-09-14 10:36] LABS: FOLATE > 24.0 NG/ML (>5.4)
[2024-09-14 10:37] LABS: VITAMIN B12 LEVEL 496 PG/ML (211-911)
== END ==
LOC: M LAB 09:08
PROVIDERS: ATTEND Nurse Practitioner Family
DX: R94.4 Abnormal results of kidney function studies (principal); D53.9 Nutritional anemia, unspecified

== ENCOUNTER → 2024-12-19 | Outpatient (REF) | payer MEDICARE ==
[2024-12-19 12:48] LABS: ALT/SGPT 44 U/L (7.0-40); AST/SGOT 81 U/L (<34); CALCIUM LEVEL 8.7 MG/DL (8.3-10.6); CARBON DIOXIDE LEVEL 27 MMOL/L (20-31); CHLORIDE LEVEL 101 MMOL/L (98-107); CREATININE FOR GFR 0.76 MG/DL (0.70-1.30); GLOMERULAR FILTRATION RATE > 90.0 (>49); POTASSIUM SERUM 3.9 MMOL/L (3.5-5.1); SODIUM LEVEL 140 MMOL/L (136-145)
[2024-12-19 13:21] LABS: ESTIMATED AVERAGE GLUCOSE 114.0 MG/DL (60-110)
== END ==
LOC: M LAB REF 12:24
PROVIDERS: ATTEND Physician Assistant
DX: N17.9 Acute kidney failure, unspecified (principal); E11.9 Type 2 diabetes mellitus without complications